=== PATIENT | male | born 1950 | race Caucasian/White ===

== ENCOUNTER 2016-12-30 12:40 | Outpatient (CLI) | payer MEDICARE, MEDICAID ==
[~2016-12-30] VITALS: Ht 182.9 cm; Wt 99.8 kg
[~2016-12-30 12:40] MED LIST: ACHD5005 PO; ASP81TEC PO; ATRV10T PO; CLOP75TA PO; CPR500T PO; LISI1TAB10 PO; LISI1TAB6 PO; METO50TA7 PO; OMEP20CA12 PO; OMG1KC PO; PHEN200T27 PO; TMSL.4C PO
--- OUTSIDE RECORDS SUMMARY | 2016-12-30 12:44 | XMS REPORT | Continuity of Care Document ---
Author Author Formerly [facility] Address Unknown Phone Unavailable Allergies Active Description Code Type Severity Reaction Onset Reported/Identified Relationship to Patient Clinical Status Yes No Known Drug Allergies [id number] Drug Allergy Unknown N/ A 12/06/2012 Medications Problems Date Dx Coded Attending Type Code Diagnosis Diagnosed By 12/23/2011 401.1 HYPERTENSION, BENIGN ESSENTIAL 12/23/2011 461.9 Sinusitis Acute 12/23/2011 466.0 Bronchitis, Acute 12/23/2011 401.1 HYPERTENSION, BENIGN ESSENTIAL 12/23/2011 461.9 Sinusitis Acute 12/23/2011 466.0 Bronchitis, Acute 12/23/2011 401.1 HYPERTENSION, BENIGN ESSENTIAL 12/23/2011 461.9 Sinusitis Acute 12/23/2011 466.0 Bronchitis, Acute 12/23/2011 FREDERICK DO, HAKAN K 401.1 HYPERTENSION, BENIGN ESSENTIAL 12/23/2011 FREDERICK DO, HAKAN K 461.9 Sinusitis Acute 12/23/2011 FREDERICK DO, HAKAN K 466.0 Bronchitis, Acute 12/23/2011 FREDERICK DO, HAKAN K 401.1 HYPERTENSION, BENIGN ESSENTIAL 12/23/2011 FREDERICK DO, HAKAN K 461.9 Sinusitis Acute 12/23/2011 FREDERICK DO, HAKAN K 466.0 Bronchitis, Acute 12/23/2011 FREDERICK DO, HAKAN K 401.1 HYPERTENSION, BENIGN ESSENTIAL 12/23/2011 FREDERICK DO, HAKAN K 461.9 Sinusitis Acute 12/23/2011 FREDERICK DO, HAKAN K 466.0 Bronchitis, Acute 12/23/2011 FREDERICK DO, HAKAN K 401.1 HYPERTENSION, BENIGN ESSENTIAL 12/23/2011 FREDERICK DO, HAKAN K 461.9 Sinusitis Acute 12/23/2011 FREDERICK DO, HAKAN K 466.0 Bronchitis, Acute 01/14/2012 702.19 OTHER SEBORRHEIC KERATOSIS 01/14/2012 709.9 UNSPECIFIED DISORDER OF SKIN AND SUBCUTANEOUS TISSUE 01/14/2012 702.19 OTHER SEBORRHEIC KERATOSIS 01/14/2012 709.9 UNSPECIFIED DISORDER OF SKIN AND SUBCUTANEOUS TISSUE 01/14/2012 702.19 OTHER SEBORRHEIC KERATOSIS 01/14/2012 709.9 UNSPECIFIED DISORDER OF SKIN AND SUBCUTANEOUS TISSUE 01/14/2012 HAKAN FREDERICK DO K 702.19 OTHER SEBORRHEIC KERATOSIS 01/14/2012 HAKAN FREDERICK DO K 709.9 UNSPECIFIED DISORDER OF SKIN AND SUBCUTANEOUS TISSUE 01/14/2012 DAVID FREDERICK DOA K 702.19 OTHER SEBORRHEIC KERATOSIS 01/14/2012 DAVID FREDERICK DOA K 709.9 UNSPECIFIED DISORDER OF SKIN AND SUBCUTANEOUS TISSUE 01/14/2012 DAVID FREDERICK DOA K 702.19 OTHER SEBORRHEIC KERATOSIS 01/14/2012 HAKAN FREDERICK DO K 709.9 UNSPECIFIED DISORDER OF SKIN AND SUBCUTANEOUS TISSUE 01/14/2012 HAKAN FREDERICK DO K 702.19 OTHER SEBORRHEIC KERATOSIS 01/14/2012 HAKAN FREDERICK DO 709.9 UNSPECIFIED DISORDER OF SKIN AND SUBCUTANEOUS TISSUE 01/28/2012 302.72 MALE ERECTILE DISORDER 01/28/2012 302.72 MALE ERECTILE DISORDER 01/28/2012 302.72 MALE ERECTILE DISORDER 01/28/2012 HAKAN FREDERICK DO K 302.72 MALE ERECTILE DISORDER 01/28/2012 HAKAN FREDERICK DO 302.72 MALE ERECTILE DISORDER 01/28/2012 HAKAN FREDERICK DO K 302.72 MALE ERECTILE DISORDER 01/28/2012 HAKAN FREDERICK DO K 302.72 MALE ERECTILE DISORDER 07/13/2012 276.51 DEHYDRATION 07/13/2012 724.2 LUMBAGO 07/13/2012 729.2 NEURALGIA NEURITIS AND RADICULITIS UNSPECIFIED 07/13/2012 276.51 DEHYDRATION 07/13/2012 724.2 LUMBAGO 07/13/2012 729.2 NEURALGIA NEURITIS AND RADICULITIS UNSPECIFIED 07/13/2012 276.51 DEHYDRATION 07/13/2012 724.2 LUMBAGO 07/13/2012 729.2 NEURALGIA NEURITIS AND RADICULITIS UNSPECIFIED 07/13/2012 HAKAN FREDERICK DO K 276.51 DEHYDRATION 07/13/2012 HAKAN FREDERICK DO K 724.2 LUMBAGO 07/13/2012 FREDERICK DO, HAKAN K 729.2 NEURALGIA NEURITIS AND RADICULITIS UNSPECIFIED 07/13/2012 FREDERICK DO, HAKAN K 276.51 DEHYDRATION 07/13/2012 FREDERICK DO, HAKAN K 724.2 LUMBAGO 07/13/2012 FREDERICK DO, HAKAN K 729.2 NEURALGIA NEURITIS AND RADICULITIS UNSPECIFIED 07/13/2012 FREDERICK DO, HAKAN K 276.51 DEHYDRATION 07/13/2012 FREDERICK DO, HAKAN K 724.2 LUMBAGO 07/13/2012 FREDERICK DO, HAKAN K 729.2 NEURALGIA NEURITIS AND RADICULITIS UNSPECIFIED 07/13/2012 FREDERICK DO, HAKAN K 276.51 DEHYDRATION 07/13/2012 FREDERICK DO, HAKAN K 724.2 LUMBAGO 07/13/2012 FREDERICK DO, HAKAN K 729.2 NEURALGIA NEURITIS AND RADICULITIS UNSPECIFIED 03/31/2013 786.05 SHORTNESS OF BREATH 03/31/2013 786.50 CHEST PAIN 03/31/2013 786.05 SHORTNESS OF BREATH 03/31/2013 786.50 CHEST PAIN 03/31/2013 FREDERICK DO, HAKAN K 786.05 SHORTNESS OF BREATH 03/31/2013 FREDERICK DO, HAKAN K 786.50 CHEST PAIN 03/31/2013 FREDERICK DO, HAKAN K 786.05 SHORTNESS OF BREATH 03/31/2013 FREDERICK DO, HAKAN K 786.50 CHEST PAIN 03/31/2013 FREDERICK DO, HAKAN K 786.05 SHORTNESS OF BREATH 03/31/2013 FREDERICK DO, HAKAN K 786.50 CHEST PAIN 03/31/2013 FREDERICK DO, HAKAN K 786.05 SHORTNESS OF BREATH 03/31/2013 FREDERICK DO, HAKAN K 786.50 CHEST PAIN 04/02/2013 790.95 ELEVATED C-REACTIVE PROTEIN (CRP) 04/02/2013 FREDERICK DO, HAKAN K 790.95 ELEVATED C-REACTIVE PROTEIN (CRP) 04/02/2013 FREDERICK DO, HAKAN K 790.95 ELEVATED C-REACTIVE PROTEIN (CRP) 04/02/2013 FREDERICK DO, HAKAN K 790.95 ELEVATED C-REACTIVE PROTEIN (CRP) 04/02/2013 FREDERICK DO, HAKAN K 790.95 ELEVATED C-REACTIVE PROTEIN (CRP) 04/09/2013 LILLIAN CLEMONS, MARLIN J Ot 401.9 HYPERTENSION NOS 04/09/2013 MARLIN MONTOYA MD Ot 413.9 ANGINA PECTORIS NEC/NOS 04/09/2013 MARLIN MONTOYA MD Ot 414.01 CORONARY ATHEROSCLEROSIS OF [place] CORON 04/09/2013 MARLIN MONTOYA MD Ot 426.50 BUNDLE BRANCH BLOCK NOS 04/09/2013 MARLIN MONTOYA MD Ot 530.81 ESOPHAGEAL REFLUX 04/09/2013 MARLIN MONTOYA MD Ot 786.09 RESPIRATORY ABNORM NEC 04/09/2013 MARLIN MONTOYA MD Ot V15.82 HISTORY OF TOBACCO USE 04/09/2013 MARLIN MONTOYA MD Ot V17.49 FAMILY HISTORY OF OTHER CARDIOVASCULAR D 04/09/2013 MARLIN MONTOYA MD Ot V58.69 OT MED,LT,CURRENT USE 09/15/2013 HAKAN FREDERICK DO K 433.10 CAROTID 09/15/2013 HAKAN FREDERICK DO K 433.10 CAROTID 09/15/2013 HAKAN FREDERICK DO K 433.10 CAROTID 09/15/2013 HAKAN FREDERICK DO K 433.10 CAROTID 01/09/2014 ELIZABETH CARLIN MD Ot 568.81 HEMOPERITONEUM 01/09/2014 ELIZABETH CARLIN MD Ot 789.09 ABDOMINAL PAIN, OTHER SPECIFIED SITE 02/28/2015 Ot 721.3 02/28/2015 Ot 599.70 02/28/2015 Ot 600.01 02/28/2015 MARLIN MONTOYA MD Ot 272.4 02/28/2015 MARLIN MONTOYA MD Ot 401.9 02/28/2015 MARLIN MONTOYA MD Ot 414.01 02/28/2015 KENYATTA BANERJEE Ot 724.2 02/28/2015 IBIS ROONEY Ot 272.4 02/28/2015 IBIS ROONEY Ot 414.00 02/28/2015 MARLIN MONTOYA MD Ot 272.4 02/28/2015 MARLIN MONTOYA MD Ot 308.1 02/28/2015 MARLIN MONTOYA MD Ot 414.00 02/28/2015 MARLIN MONTOYA MD Ot 426.4 02/28/2015 MARLIN MONTOYA MD Ot 786.50 03/24/2015 LILLIAN MD, BASHAR J Ot 272.4 03/24/2015 LILLIAN CLEMONS, BASHAR J Ot 401.9 03/24/2015 LILLIAN CLEMONS, BASHAR J Ot 414.9 03/24/2015 LILLIAN CLEMONS, BASHAR J Ot 786.09 03/24/2015 LILLIAN CLEMONS, BASHAR J Ot 272.4 03/24/2015 LILLIAN CLEMONS, BASHAR J Ot 401.9 03/24/2015 LILLIAN CLEMONS, BENJAMINHAR J Ot 414.9 03/24/2015 LILLIAN CLEMONS, BASHAR J Ot 786.09 03/24/2015 LILLIAN CLEMONS, BASHAR J Ot 272.4 03/24/2015 LILLIAN CLEMONS, BASHAR J Ot 401.9 03/24/2015 ILLLIAN CLEMONS, MARLIN J Ot 414.00 03/24/2015 LILLIAN CLEMONS, MARLIN J Ot 786.09 04/07/2015 LILLIAN CLEMONS, BENJAMINHAR J Ot 272.4 04/07/2015 LILLIAN CLEMONS, BENJAMINHAR J Ot 401.9 04/07/2015 LILLIAN CLEMONS, MARLIN J Ot 414.9 04/07/2015 LILLIAN CLEMONS, MARLIN J Ot 786.09 04/07/2015 LILLIAN CLEMONS, MARLIN J Ot 272.4 04/07/2015 LILLIAN CLEMONS, BENJAMINHAR J Ot 401.9 04/07/2015 LILLIAN CLEMONS, MARLIN J Ot 414.00 04/07/2015 LILLIAN CLEMONS, MARLIN J Ot 786.09 06/23/2015 Ot 721.3 06/23/2015 Ot 599.70 06/23/2015 Ot 600.01 06/23/2015 LILLIAN CLEMONS, MARLIN J Ot 272.4 06/23/2015 LILLIAN CLEMONS, BENJAMINHAR J Ot 401.9 06/23/2015 LILLIAN CLEMONS, BENJAMINHAR J Ot 414.01 06/23/2015 KENYATTA BANERJEE Ot 724.2 06/23/2015 IBIS ROONEY Ot 272.4 06/23/2015 IBIS ROONEY Ot 414.00 06/23/2015 LILLIAN CLEMONS, MARLIN J Ot 272.4 06/23/2015 LILLIAN CLEMONS, MARLIN J Ot 308.1 06/23/2015 LILLIAN CLEMONS, MARLIN J Ot 414.00 06/23/2015 LILLIAN CLEMONS, BASHAR J Ot 426.4 06/23/2015 LILLIAN CLEMONS, MARLIN Lee Ot 786.50 06/23/2015 LILLIAN CLEMONS, MARLIN Lee Ot 272.4 06/23/2015 LILLIAN CLEMONS, MARLIN J Ot 401.9 06/23/2015 LILLIAN CLEMONS, MARLIN J Ot 414.9 06/23/2015 LILLIAN CLEMONS, MARLIN Lee Ot 786.09 06/23/2015 LILLIAN CLEMONS, MARLIN Lee Ot 272.4 06/23/2015 LILLIAN CLEMONS, MARLIN Lee Ot 401.9 06/23/2015 LILLIAN CLEMONS, MARLIN Lee Ot 414.9 06/23/2015 LILLIAN CLEMONS, MARLIN Lee Ot 786.09 06/23/2015 LILLIAN CLEMONS, MARLIN Lee Ot 272.4 06/23/2015 LILLIAN CLEMONS, MARLIN Lee Ot 401.9 06/23/2015 LILLIAN CLEMONS, MARLIN Lee Ot 414.00 06/23/2015 LILLIAN CLEMONS, MARLIN Lee Ot 786.09 09/01/2015 SAMANTHA PERALTA MD Ot M51.36 OTHER INTERVERTEBRAL DISC DEGENERATION, 09/01/2015 SAMANTHA PERALTA MD Ot 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 10/24/2015 Ot 721.3 10/24/2015 Ot 599.70 10/24/2015 Ot 600.01 10/24/2015 LILLIAN CLEMONS, MARLIN Lee Ot 272.4 10/24/2015 LILLIAN CLEMONS, MARLIN Lee Ot 401.9 10/24/2015 LILLIAN CLEMONS, MARLIN Lee Ot 414.01 10/24/2015 KENYATTA BANERJEE Ot 724.2 10/24/2015 IBIS ROONEY Ot 272.4 10/24/2015 IBIS ROONEY Ot 414.00 10/24/2015 LILLIAN CLEMONS, MARLIN Lee Ot 272.4 10/24/2015 LILLIAN CLEMONS, MARLIN Lee Ot 308.1 10/24/2015 LILLIAN CLEMONS, MARLIN Lee Ot 414.00 10/24/2015 LILLIAN CLEMONS, MARLIN Lee Ot 426.4 10/24/2015 LILLIAN CLEMONS, MARLIN Lee Ot 786.50 10/24/2015 LILLIAN CLEMONS, MARLIN Lee Ot 272.4 10/24/2015 LILLIAN CLEMONS, MARLIN Lee Ot 401.9 10/24/2015 MARLIN MONTOYA MD Ot 414.9 10/24/2015 MARLIN MONTOYA MD Ot 786.09 10/24/2015 MARLIN MONTOYA MD Ot 272.4 10/24/2015 MARLIN MONTOYA MD Ot 401.9 10/24/2015 MARLIN MONTOYA MD Ot 414.9 10/24/2015 MARLIN MONTOYA MD Ot 786.09 10/24/2015 MARLIN MONTOYA MD Ot 272.4 10/24/2015 MARLIN MONTOYA MD Ot 401.9 10/24/2015 MARLIN MONTOYA MD Ot 414.00 10/24/2015 MARLIN MONTOYA MD Ot 786.09 10/24/2015 SAUNDRA JONES APRN Ot 724.2 11/16/2015 MARLIN MONTOYA MD Ot I25.10 11/16/2015 MARLIN MONTOYA MD Ot I73.9 11/16/2015 MARLIN MONTOYA MD Ot R25.2 11/16/2015 MARLIN MONTOYA MD Ot I25.10 11/16/2015 MARLIN MONTOYA MD Ot I73.9 11/16/2015 MARLIN MONTOYA MD Ot R25.2 01/05/2016 SAMANTHA PERALTA MD Ot M51.16 INTERVERTEBRAL DISC DISORDERS W RADICULO 01/05/2016 SAMANTHA PERALTA MD Ot M53.3 SACROCOCCYGEAL DISORDERS, NOT ELSEWHERE 01/05/2016 SAMANTHA PERALTA MD Ot Z79.899 OTHER HALF-WAY (CURRENT) DRUG THERAPY 03/04/2016 MARLIN MONTOYA MD Ot E78.2 MIXED HYPERLIPIDEMIA 03/04/2016 MARLIN MONTOYA MD Ot I10 ESSENTIAL (PRIMARY) HYPERTENSION 03/04/2016 MARLIN MONTOYA MD Ot I25.10 ATHSCL HEART DISEASE OF [place] CORONARY 03/04/2016 MARLIN MONTOYA MD Ot R07.89 OTHER CHEST PAIN 03/21/2016 MARLIN MONTOYA MD Ot E78.2 MIXED HYPERLIPIDEMIA 03/21/2016 MARLIN MONTOYA MD Ot I10 ESSENTIAL (PRIMARY) HYPERTENSION 03/21/2016 MARLIN MONTOAY MD Ot I25.10 ATHSCL HEART DISEASE OF [place] CORONARY 03/21/2016 MARLIN MONTOYA MD Ot R07.89 OTHER CHEST PAIN 05/24/2016 SAMANTHA PERALTA MD Ot M51.16 INTERVERTEBRAL DISC DISORDERS W RADICULO 05/24/2016 SAMANTHA PERALTA MD Ot M53.3 SACROCOCCYGEAL DISORDERS, NOT ELSEWHERE 06/19/2016 SAMANTHA PERALTA MD Ot M51.16 INTERVERTEBRAL DISC DISORDERS W RADICULO 06/19/2016 SAMANTHA PERALTA MD Ot M53.3 SACROCOCCYGEAL DISORDERS, NOT ELSEWHERE 09/02/2016 Ot 599.70 HEMATURIA, UNSPECIFIED 09/02/2016 Ot 600.01 HYPERTROPHY (BENIGN) OF PROSTATE W URINA 09/02/2016 MARLIN MONTOYA MD Ot 272.4 HYPERLIPIDEMIA NEC/NOS 09/02/2016 MARLIN MONTOYA MD Ot 401.9 HYPERTENSION NOS 09/02/2016 MARLIN MONTOYA MD Ot 414.01 CORONARY ATHEROSCLEROSIS OF [place] CORON 09/02/2016 KENYATTA BANERJEE Ot 724.2 LUMBAGO 09/02/2016 IBIS ROONEY Ot 272.4 HYPERLIPIDEMIA NEC/NOS 09/02/2016 IBIS ROONEY Ot 414.00 CORON ATHEROSCLER NOS TYPE VESSEL, NATIV 09/02/2016 MARLIN MONTOYA MD Ot 272.4 HYPERLIPIDEMIA NEC/NOS 09/02/2016 MARLIN MONTOYA MD Ot 308.1 STRESS REACTION, FUGUE 09/02/2016 MARLIN MONTOYA MD Ot 414.00 CORON ATHEROSCLER NOS TYPE VESSEL, NATIV 09/02/2016 MARLIN MONTOYA MD Ot 426.4 RT BUNDLE BRANCH BLOCK 09/02/2016 MARLIN MONTOYA MD Ot 786.50 CHEST PAIN NOS 09/02/2016 MARLIN MONTOYA MD Ot 272.4 HYPERLIPIDEMIA NEC/NOS 09/02/2016 MARLIN MONTOYA MD Ot 401.9 HYPERTENSION NOS 09/02/2016 MARLIN MONTOYA MD Ot 414.9 CHR ISCHEMIC HRT DIS NOS 09/02/2016 MARLIN MONTOYA MD Ot 786.09 RESPIRATORY ABNORM NEC 09/02/2016 MARLIN MONTOYA MD Ot 272.4 HYPERLIPIDEMIA NEC/NOS 09/02/2016 MARLIN MONTOYA MD Ot 401.9 HYPERTENSION NOS 09/02/2016 MARLIN MONTOYA MD Ot 414.9 CHR ISCHEMIC HRT DIS NOS 09/02/2016 MARLIN MONTOYA MD Ot 786.09 RESPIRATORY ABNORM NEC 09/02/2016 MARLIN MONTOYA MD Ot 272.4 HYPERLIPIDEMIA NEC/NOS 09/02/2016 MARLIN MONTOYA MD Ot 401.9 HYPERTENSION NOS 09/02/2016 MARLIN MONTOYA MD Ot 414.00 CORON ATHEROSCLER NOS TYPE VESSEL, NATIV 09/02/2016 MARLIN MONTOYA MD Ot 786.09 RESPIRATORY ABNORM NEC 09/02/2016 ROBERT SAUNDRA A GROUP DYNAMICS INSTRUCTOR Ot 724.2 LUMBAGO 09/02/2016 MARLIN MONTOYA MD Ot I25.10 ATHSCL HEART DISEASE OF [place] CORONARY 09/02/2016 MARLIN MONTOYA MD Ot I73.9 PERIPHERAL VASCULAR DISEASE, UNSPECIFIED 09/02/2016 MARLIN MONTOYA MD Ot R25.2 CRAMP AND SPASM 09/02/2016 MARLIN MONTOYA MD Ot E78.2 MIXED HYPERLIPIDEMIA 09/02/2016 MARLIN MONTOYA MD Ot I10 ESSENTIAL (PRIMARY) HYPERTENSION 09/02/2016 MARLIN MONTOYA MD Ot I25.10 ATHSCL HEART DISEASE OF [place] CORONARY 09/02/2016 MARLIN MONTOYA MD Ot R07.89 OTHER CHEST PAIN 09/02/2016 SAMANTHA PERALTA MD Ot M51.16 INTERVERTEBRAL DISC DISORDERS W RADICULO 09/02/2016 SAMANTHA PERALTA MD Ot M53.3 SACROCOCCYGEAL DISORDERS, NOT ELSEWHERE 09/02/2016 SAMANTHA PERALTA MD Ot Z79.899 OTHER HALF-WAY (CURRENT) DRUG THERAPY 10/08/2016 MARLIN MONTOYA MD Ot Z48.812 ENCNTR FOR SURGICAL AFTCR FOLLOWING SURG 10/08/2016 MARLIN MONTOYA MD Ot Z95.5 PRESENCE OF CORONARY ANGIOPLASTY IMPLANT 11/14/2016 MARLIN MONTOYA MD Ot Z48.812 ENCNTR FOR SURGICAL AFTCR FOLLOWING SURG 11/14/2016 MARLIN MONTOYA MD Ot Z95.5 PRESENCE OF CORONARY ANGIOPLASTY IMPLANT 11/20/2016 MARLIN MONTOYA MD Ot Z48.812 ENCNTR FOR SURGICAL AFTCR FOLLOWING SURG 11/20/2016 MARLIN MONTOYA MD Ot Z95.5 PRESENCE OF CORONARY ANGIOPLASTY IMPLANT 11/20/2016 MARLIN MONTOYA MD Ot Z48.812 ENCNTR FOR SURGICAL AFTCR FOLLOWING SURG 11/20/2016 MARLIN MONTOYA MD Ot Z95.5 PRESENCE OF CORONARY ANGIOPLASTY IMPLANT 11/23/2016 MARLIN MONTOYA MD Ot Z48.812 ENCNTR FOR SURGICAL AFTCR FOLLOWING SURG 11/23/2016 MARLIN MONTOYA MD Ot Z95.5 PRESENCE OF CORONARY ANGIOPLASTY IMPLANT 11/28/2016 MARLIN MONTOYA MD Ot Z48.812 ENCNTR FOR SURGICAL AFTCR FOLLOWING SURG 11/28/2016 MARLIN MONTOYA MD Ot Z95.5 PRESENCE OF CORONARY ANGIOPLASTY IMPLANT 11/28/2016 MARLIN MONTOYA MD Ot Z48.812 ENCNTR FOR SURGICAL AFTCR FOLLOWING SURG 11/28/2016 MARLIN MONTOYA MD Ot Z95.5 PRESENCE OF CORONARY ANGIOPLASTY IMPLANT Procedures Code Description [place] [address] ROUTINE VENIPUNCTURE 04/01/2013 63015 CMP 04/01/2013 1919404 GFR CALC (RESULT ONLY) 04/01/2013 09964 CPK 04/01/2013 37929 BNP 04/01/2013 03472 CRP HS (CARDIO) 04/01/2013 09845 CARDIOVASCULAR STRESS TEST 04/02/2013 Cardiolog Marlin Montoya 09/15/2013 78626 ROUTINE VENIPUNCTURE 11/04/2013 63230 MRI SPINE (LUMBAR) W/O CONTRAST 11/04/2013 24434 CMP 11/04/2013 OPHTHALMOLIVIA RASHEED 07/19/2014 Results Encounters ACCT No. Visit Date/Time Discharge Status Pt. Type Provider Facility Loc./Unit Complaint [id number] 07/21/2014 00:00:00 07/21/2014 23: 59:59 CLS Outpatient HAKAN FREDERICK DO [id number] 07/19/2014 09:28:00 07/19/2014 23: 59:59 CLS Outpatient HAKAN FREDERICK DO [id number] 11/04/2013 10:27:00 11/04/2013 23: 59:59 CLS Outpatient HAKAN FREDERICK DO [id number] 09/01/2013 10:51:00 09/01/2013 23: 59:59 CLS Outpatient HAKAN FREDERICK DO [id number] 04/01/2013 08:04:00 Document Registration [id number] 03/31/2013 09:23:00 Document Registration [id number] 09/14/2012 11:56:00 Document Registration
[2016-12-30] MEDS ORDERED: BUPIVACAINE 0.25% 30 ML (SENSORCAINE) VIAL ONE (12:48)
[2016-12-30] MEDS ORDERED: LIDOCAINE 1% INJ 20 ML (XYLOCAINE) VIAL ONE (12:48)
[2016-12-30] MEDS ORDERED: TRIAMCINOLONE ACET (KENALOG-40) 40 MG/ML 1 ML VIAL ONE (12:48)
[2016-12-30 13:28] VITALS: BP 131/74
[2016-12-30 14:16] VITALS: BP 129/75
--- NOTE | 2016-12-30 14:53 | Pain Medicine-Procedure ---
Procedure Pre-Op/Post-Op Diagnosis Diagnosis: disc disorder with radiculopathy, lumbar Indications for Operation Low back and hip pain Attending Surgeon Guzman Procedure Date of Service: Dec 30, 2016 Procedure: Lumbar Epidural Steroid Injection at the L4-L5 Level under Fluoroscopic Guidance and bilateral sacroiliac joint injections Procedure: Patient was identified in the holding area. After risks, benefits, and alternatives were discussed with the patient, informed consent was obtained. Patient held his Plavix for 7 days prior to procedure. Patient was brought to the fluoroscopy suite and placed prone on the procedure room table. A time out was performed. Vital signs were monitored throughout the procedure. The patients low back was prepped and draped in the usual sterile fashion. The patients skin was anesthetized using 2% Lidocaine. A Tuohy needle was inserted and advanced to the L4-L5 epidural space under fluoroscopic guidance using the loss of resistance technique and intermittent projection of fluoroscopy. There was no paresthesia with needle placement. The needle position was confirmed in both the AP and lateral view. After negative aspiration 2ml of non-ionic contrast was injected under live fluoroscopy which showed good spread of the contrast in the epidural space at the appropriate level, there was no intravascular or subarachnoid spread. Again, after negative aspiration for heme or CSF, 2 ml of 0.25% Bupivicaine, 2ml of preservative free normal saline, and 80mg of Kenalog was injected. The needle was removed and a sterile bandage was placed. Attention was then directed to the right sacroiliac joint which was identified under fluoroscopic guidance. The skin overlying the posterior inferior one third of the sacroiliac joint was anesthetized with 1 percent lidocaine and a 22 -gauge 3-1/2 inch needle was inserted and advanced into the joint. Following negative aspiration a total of 20 mg of Kenalog and 2 mL of 0.25 percent bupivacaine was injected. Needle was flushed with lidocaine and removed. Attention was then directed to the left sacroiliac joint were the same procedure was performed and the same solution was injected. Sterile bandages were applied. Patient tolerated the procedures well with no apparent complications. Complications None SAMANTHA PERALTA MD Dec 30, 2016 2:53 pm
== END 2016-12-30 14:20 | disposition home or self-care (01) ==
LOC: CARD 12:40
PROVIDERS: ATTEND Pain Medicine Pain Medicine
DX: M53.3 Sacrococcygeal disorders, not elsewhere classified (principal); M51.16 Intervertebral disc disorders with radiculopathy, lumbar region; Z79.899 Other long term (current) drug therapy
CPT/HCPCS: 27096; 62323

== ENCOUNTER 2017-01-03 08:47 | Outpatient (RCR) | payer MEDICARE, MEDICAID | END 2017-01-05 | disposition home or self-care (01) | LOC: CR 08:47 | PROVIDERS: ATTEND Internal Medicine Cardiovascular Disease | DX: Z48.812 Encounter for surgical aftercare following surgery on the circulatory system (principal); Z95.5 Presence of coronary angioplasty implant and graft | CPT/HCPCS: 93798 ==

== ENCOUNTER 2017-03-24 12:58 | Outpatient (CLI) | payer MEDICARE, MEDICAID ==
[~2017-03-24] VITALS: Ht 182.9 cm; Wt 99.8 kg
[2017-03-24] MEDS ORDERED: TRIAMCINOLONE ACET (KENALOG-40) 40 MG/ML 1 ML VIAL ONE (13:04)
[2017-03-24] MEDS ORDERED: BUPIVACAINE 0.25% 30 ML (SENSORCAINE) VIAL ONE (13:04)
[2017-03-24 13:08] VITALS: BP 128/71
[2017-03-24 13:42] VITALS: BP 133/88
--- NOTE | 2017-03-24 14:29 | Pain Medicine-Procedure ---
Procedure Pre-Op/Post-Op Diagnosis Diagnosis: disc disorder with radiculopathy, lumbar Indications for Operation Low back and hip pain Attending Surgeon Guzman Procedure Date of Service: March 24, 2017 Procedure: Lumbar Epidural Steroid Injection at the L4-L5 Level under Fluoroscopic Guidance and bilateral sacroiliac joint injections Procedure: Patient was identified in the holding area. After risks, benefits, and alternatives were discussed with the patient, informed consent was obtained. Patient held his Plavix for 7 days prior to procedure and he was instructed to start his Plavix again 24 hours following procedure. Patient was brought to the fluoroscopy suite and placed prone on the procedure room table. A time out was performed. Vital signs were monitored throughout the procedure. The patients low back was prepped and draped in the usual sterile fashion. The patients skin was anesthetized using 2% Lidocaine. A Tuohy needle was inserted and advanced to the L4-L5 epidural space under fluoroscopic guidance using the loss of resistance technique and intermittent projection of fluoroscopy. There was no paresthesia with needle placement. The needle position was confirmed in both the AP and lateral view. After negative aspiration 2ml of non-ionic contrast was injected under live fluoroscopy which showed good spread of the contrast in the epidural space at the appropriate level, there was no intravascular or subarachnoid spread. Again, after negative aspiration for heme or CSF, 2 ml of 0.25% Bupivicaine, 2ml of preservative free normal saline, and 80mg of Kenalog was injected. The needle was removed and a sterile bandage was placed. Attention was then directed to the right sacroiliac joint which was identified under fluoroscopic guidance. The skin overlying the posterior inferior one third of the sacroiliac joint was anesthetized with 1 percent lidocaine and a 22 -gauge 3-1/2 inch needle was inserted and advanced into the joint. Following negative aspiration a total of 20 mg of Kenalog and 2 mL of 0.25 percent bupivacaine was injected. Needle was flushed with lidocaine and removed. Attention was then directed to the left sacroiliac joint were the same procedure was performed and the same solution was injected. Sterile bandages were applied. Patient tolerated the procedures well with no apparent complications. Complications None SAMANTHA PERALTA MD March 24, 2017 2:29 pm
== END 2017-03-24 13:43 | disposition home or self-care (01) ==
LOC: CARD 12:58
PROVIDERS: ATTEND Pain Medicine Pain Medicine
DX: M53.3 Sacrococcygeal disorders, not elsewhere classified (principal); M51.16 Intervertebral disc disorders with radiculopathy, lumbar region
CPT/HCPCS: 27096; 62323

== ENCOUNTER 2017-04-02 08:45 | Outpatient (RCR) | payer MEDICARE, MEDICAID ==
--- OUTSIDE RECORDS SUMMARY | 2017-01-06 09:57 | XMS REPORT | Continuity of Care Document ---
Author Author Formerly [facility] Address Unknown Phone Unavailable Allergies Active Description Code Type Severity Reaction Onset Reported/Identified Relationship to Patient Clinical Status Yes No Known Drug Allergies [id number] Drug Allergy Unknown N/ A 12/06/2012 Medications [...] MONTOYA MD Ot 414.01 CORONARY ATHEROSCLEROSIS OF [place] CORON 04/09/2013 MARLIN MONTOYA MD Ot 426.50 BUNDLE BRANCH BLOCK NOS 04/09/2013 MARLIN MONTOYA MD Ot 530.81 ESOPHAGEAL REFLUX 04/09/2013 MARLIN MONTOYA MD Ot 786.09 RESPIRATORY ABNORM NEC 04/09/2013 MARLIN MONTOYA MD Ot V15.82 HISTORY OF TOBACCO USE 04/09/2013 MARLIN MONTOYA MD Ot V17.49 FAMILY HISTORY OF OTHER CARDIOVASCULAR D 04/09/2013 MARLIN OMNTOYA MD Ot V58.69 OT MED,LT,CURRENT USE 09/15/2013 [...] BASHAR J Ot 401.9 03/24/2015 LILLIAN CLEMONS, MARLIN J Ot 414.00 03/24/2015 LILLIAN [...] LILLIAN CLEMONS, MARLIN Lee Ot 786.09 06/23/2015 LILILAN CLEMONS, MARLIN Lee Ot 272.4 06/23/2015 LILLIAN [...] 01/05/2016 SAMANTHA PERALTA MD Ot Z79.899 OTHER [place]DC (CURRENT) DRUG THERAPY 03/04/2016 MARLIN MONTOYA MD Ot E78.2 MIXED HYPERLIPIDEMIA 03/04/2016 MARLIN MONTOYA MD Ot I10 ESSENTIAL (PRIMARY) HYPERTENSION 03/04/2016 MARLIN MONTOYA MD Ot I25.10 ATHSCL HEART DISEASE OF [place] CORONARY 03/04/2016 MARLIN MONTOYA MD Ot R07.89 OTHER CHEST PAIN 03/21/2016 MARLIN MONTOYA MD Ot E78.2 MIXED HYPERLIPIDEMIA 03/21/2016 MARLIN MONTOYA MD Ot I10 ESSENTIAL (PRIMARY) HYPERTENSION 03/21/2016 MARLIN MONTOYA MD Ot I25.10 ATHSCL HEART DISEASE OF [place] CORONARY 03/21/2016 MARLIN MONTOYA MD Ot R07.89 OTHER CHEST PAIN 05/24/2016 SAMANTHA PERALTA MD Ot M51.16 INTERVERTEBRAL DISC DISORDERS W RADICULO 05/24/2016 SAMANTHA PERALTA MD Ot M53.3 SACROCOCCYGEAL DISORDERS, NOT ELSEWHERE 06/19/2016 SAMANTHA EPRALTA MD Ot M51.16 INTERVERTEBRAL DISC DISORDERS W RADICULO 06/19/2016 SAMANTHA PERALTA MD Ot M53.3 SACROCOCCYGEAL DISORDERS, NOT ELSEWHERE 09/02/2016 Ot 599.70 HEMATURIA, UNSPECIFIED 09/02/2016 Ot 600.01 HYPERTROPHY (BENIGN) OF PROSTATE W URINA 09/02/2016 MARLIN MONTOYA MD Ot 272.4 HYPERLIPIDEMIA NEC/NOS 09/02/2016 MARLIN MNOTOYA MD Ot 401.9 HYPERTENSION NOS 09/02/2016 MARLIN MONTOYA MD Ot 414.01 CORONARY ATHEROSCLEROSIS OF [place] CORON 09/02/2016 KENYATTA BANERJEE Ot 724.2 LUMBAGO [...] RESPIRATORY ABNORM NEC 09/02/2016 ROBERT SAUNDRA A HEAD TEACHER Ot 724.2 LUMBAGO 09/02/2016 MARLIN MONTOYA MD Ot I25.10 ATHSCL HEART DISEASE OF [place] CORONARY 09/02/2016 MARLIN MONTOYA MD Ot I73.9 PERIPHERAL VASCULAR DISEASE, UNSPECIFIED 09/02/2016 MARLIN MONTOYA MD Ot R25.2 CRAMP AND SPASM 09/02/2016 MARLIN MONTOYA MD Ot E78.2 MIXED HYPERLIPIDEMIA 09/02/2016 MARLIN MONTOYA MD Ot I10 ESSENTIAL (PRIMARY) HYPERTENSION 09/02/2016 MARLIN MONTOYA MD Ot I25.10 ATHSCL HEART DISEASE OF [place] CORONARY 09/02/2016 MARLIN MONTOYA MD Ot R07.89 OTHER CHEST PAIN 09/02/2016 SAMANTHA PERALTA MD Ot M51.16 INTERVERTEBRAL DISC DISORDERS W RADICULO 09/02/2016 SAMANTHA PERALTA MD Ot M53.3 SACROCOCCYGEAL DISORDERS, NOT ELSEWHERE 09/02/2016 SAMANTHA PERALTA MD Ot Z79.899 OTHER [place] (CURRENT) DRUG THERAPY 10/08/2016 MARLIN MONTOYA MD [...] Ot Z95.5 PRESENCE OF CORONARY ANGIOPLASTY IMPLANT 12/30/2016 SAMANTHA PERALTA MD Ot M51.16 INTERVERTEBRAL DISC DISORDERS W RADICULO 12/30/2016 SAMANTHA PERALTA MD Ot M53.3 SACROCOCCYGEAL DISORDERS, NOT ELSEWHERE Procedures Code [place] [address] ROUTINE VENIPUNCTURE 04/01/2013 28202 CMP 04/01/2013 1981760 GFR CALC (RESULT ONLY) 04/01/2013 65555 CPK 04/01/2013 50970 BNP 04/01/2013 22970 CRP HS (CARDIO) 04/01/2013 88652 CARDIOVASCULAR STRESS TEST 04/02/2013 Cardiolog Marlin Montoya 09/15/2013 19324 ROUTINE VENIPUNCTURE 11/04/2013 90422 MRI SPINE (LUMBAR) W/O CONTRAST 11/04/2013 69585 CMP 11/04/2013 OPHTHALMOLIVIA RASHEED 07/19/2014 Results Encounters ACCT No. Visit Date/Time Discharge Status Pt. Type Provider Facility Loc./Unit Complaint [id number] 07/21/2014 00:00:00 07/21/2014 23: 59:59 CLS Outpatient HAKAN FREDERICK DO [id number] 07/19/2014 09:28:00 07/19/2014 23: 59:59 CLS Outpatient HAKAN FREDERICK DO [id number] 11/04/2013 10:27:00 11/04/2013 23: 59:59 CLS Outpatient HAKAN FREDERICK DO [id number] 09/01/2013 10:51:00 09/01/2013 23: 59:59 CLS Outpatient HAKAN FREDERICK DO [id number] 04/01/2013 08:04:00 Document Registration [id number] 03/31/2013 09:23:00 Document Registration [id number] 09/14/2012 11:56:00 Document Registration
== END 2017-04-06 | disposition home or self-care (01) ==
LOC: CR 08:45
PROVIDERS: ATTEND Internal Medicine Cardiovascular Disease
DX: Z48.812 Encounter for surgical aftercare following surgery on the circulatory system (principal); Z95.5 Presence of coronary angioplasty implant and graft
CPT/HCPCS: 93798

== ENCOUNTER → 2017-04-03 | Outpatient (CLI) | payer MEDICARE, MEDICAID ==
[2017-04-03 08:04] LABS: ALANINE AMINOTRANSFERASE 29 U/L (0-55); ALBUMIN 3.8 G/DL (3.2-4.5); ANION GAP 7 MMOL/L (5-14); ASPARTATE AMINO TRANSFERASE 17 U/L (5-34); BILIRUBIN,TOTAL 1.6 MG/DL (0.1-1.0); BLOOD UREA NITROGEN 27 MG/DL (7-18); BUN/CREATININE RATIO 25; CALCIUM 9.3 MG/DL (8.5-10.1); CARBON DIOXIDE 24 MMOL/L (21-32); CHLORIDE 104 MMOL/L (98-107); CHOLESTEROL 94 MG/DL (< 200); CREATININE SERUM 1.07 MG/DL (0.60-1.30); DIRECT LDL 51 MG/DL (1-129); GFR ESTIMATED > 60; GLUCOSE 91 MG/DL (70-105); POTASSIUM 4.1 MMOL/L (3.6-5.0); SODIUM 135 MMOL/L (135-145); TRIGLYCERIDES 87 MG/DL (<150); VLDL CHOLESTEROL 17 MG/DL (5-40)
== END ==
LOC: LAB 07:29
PROVIDERS: ATTEND Physician Assistant
DX: I25.10 Atherosclerotic heart disease of native coronary artery without angina pectoris (principal); I10 Essential (primary) hypertension; E78.2 Mixed hyperlipidemia
CPT/HCPCS: 36415; 80053; 80061

== ENCOUNTER 2017-04-18 08:43 | Outpatient (RCR) | payer MEDICARE, MEDICAID | END 2017-04-21 06:59 | disposition home or self-care (01) | LOC: CR 08:43 | PROVIDERS: ATTEND Internal Medicine Cardiovascular Disease | DX: Z48.812 Encounter for surgical aftercare following surgery on the circulatory system (principal); Z95.5 Presence of coronary angioplasty implant and graft | CPT/HCPCS: 93798 ==

== ENCOUNTER → 2017-05-05 | Outpatient (CLI) | payer MEDICARE, MEDICAID | LOC: CARD 08:16 | PROVIDERS: ATTEND Physician Assistant | DX: I25.10 Atherosclerotic heart disease of native coronary artery without angina pectoris (principal); I10 Essential (primary) hypertension; E78.2 Mixed hyperlipidemia | CPT/HCPCS: 93306 ==

== ENCOUNTER → 2018-03-23 | Outpatient (CLI) | payer MEDICARE, MEDICAID ==
[2018-03-23 10:10] LABS: ALANINE AMINOTRANSFERASE 34 U/L (0-55); ALKALINE PHOSPHATASE 66 U/L (40-136); BILIRUBIN,TOTAL 1.2 MG/DL (0.1-1.0); BUN/CREATININE RATIO 13; CALCIUM 9.4 MG/DL (8.5-10.1); CARBON DIOXIDE 29 MMOL/L (21-32); CHLORIDE 105 MMOL/L (98-107); CHOLESTEROL 105 MG/DL (< 200); CREATININE SERUM 1.18 MG/DL (0.60-1.30); GFR ESTIMATED > 60; GLUCOSE 94 MG/DL (70-105); HDL CHOLESTEROL 24 MG/DL (40-60); POTASSIUM 3.9 MMOL/L (3.6-5.0); SODIUM 139 MMOL/L (135-145); TOTAL PROTEIN 6.6 GM/DL (6.4-8.2); TRIGLYCERIDES 177 MG/DL (<150); VLDL CHOLESTEROL 35 MG/DL (5-40)
== END ==
LOC: LAB 09:37
PROVIDERS: ATTEND Physician Assistant
DX: I25.10 Atherosclerotic heart disease of native coronary artery without angina pectoris (principal); I10 Essential (primary) hypertension; E78.5 Hyperlipidemia, unspecified
CPT/HCPCS: 36415; 80053; 80061

== ENCOUNTER 2018-07-29 06:45 | Day surgery (SDC) | payer MEDICARE, MEDICAID ==
[2018-07-29] VITALS (10 sets, daily range): BP systolic 113–148; BP diastolic 61–98
[~2018-07-29] VITALS: Ht 180.3 cm; Wt 98.4 kg
--- OUTSIDE RECORDS SUMMARY | 2018-07-29 06:49 | XMS REPORT ---
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 Name Role Phone RICHARD SANDOVAL Unavailable PROBLEMS Type Condition ICD9-CM Code PNA90-IX Code Onset Dates Condition Status SNOMED Code Problem Coronary atherosclerosis due to lipid rich plaque I25.83 Active 38506352 Problem Chronic fatigue R53.82 Active 45878312 Problem Essential hypertension I10 Active 66281904 Problem Bilateral carotid artery stenosis I65.23 Active 87957841 Problem Tinnitus, bilateral H93.13 Active 4348169525900 Problem Lumbago with sciatica, left side M54.42 Active 440236101 Problem Melanocytic nevus of neck D22.4 Active 268936276 Problem Coronary artery disease involving [place] heart, angina presence unspecified, unspecified vessel or lesion type I25.10 Active 36890790 Problem Lumbar radiculopathy, chronic M54.16 Active 677405635 Problem Gastroesophageal reflux disease without esophagitis K21.9 Active 266682343 ALLERGIES No Information ENCOUNTERS Encounter Location Date Diagnosis [place] [address] [address] Nov, Pain in thoracic spine M54.6 [place] [address] [place] [id number] [place] [address]- 6321 Nov, [place] [address] [place] [address] 94561- 9768 Nov, Pain in thoracic spine M54.6 [place] [id number] [place] [address] 11520- 6608 Nov, Seborrheic keratoses L82.1 [place] [address] [place] [address] 80927- 8162 Nov, Pain in thoracic spine M54.6 and Skin lesion L98.9 [place] [address] [place] [address] 11317- 4574 Oct, [place] [id number] [place] [address] 02468- 0654 Aug, Worried well Z71.1 [facility] [address] [place] [address] [id number] Jun, Dental examination Z01.20 [place] [id number] [place] [address] 77966- 1916 Jan, [place] [address] [address]- [address] Dec, Lumbar radiculopathy, chronic M54.16 [place] [id number] [place] [address] 88246- 1721 Dec, Lumbar radiculopathy, chronic M54.16 and Tinnitus, bilateral H93.13 [place] [id number] [place] [address] 25611- 4831 Oct, Essential hypertension I10 ; Coronary artery disease involving [place] heart, angina presence unspecified, unspecified vessel or lesion type I25.10 ; Gastroesophageal reflux disease without esophagitis K21.9 ; Lumbar radiculopathy, chronic M54.16 and Chronic fatigue R53.82 [place] [id number] [place] [address] 29825- 1364 Jun, Seborrheic keratoses L82.1 [place] [address] [place] [address] 22872- 2200 May, Chronic fatigue R53.82 ; Essential hypertension I10 ; Melanocytic nevus of neck D22.4 and Coronary artery disease involving [place] heart, angina presence unspecified, unspecified vessel or lesion type I25.10 [place] [id number] [place] [address] 09702- 0061 Apr, [place] [address], [place] [address] 6[address] March, [facility] [id number] [place] [address] 46145- 0143 March, Essential hypertension I10 ; Coronary artery disease involving iroquois heart, angina presence unspecified, unspecified vessel or lesion type I25.10 and Chronic fatigue R53.82 [facility] [address], [place] [address] 379[address] Sep, [facility] [address] [facility] [id number] [address] Jul, [facility] [id number] [place] [address] 19681- 0194 Jun, [facility] [id number] [place] [address] 58506- 9697 Jun, Lumbago 724.2 [facility] [address], [place] [address] 3466 Feb, [facility] [address], [place] [address]- 5284 Feb, [facility] [address], [place] [address]- 2483 Nov, [facility] [address], [place] [address]- 4531 Nov, [facility] [address], [place] [address] 0224 Jul, [facility] [address] [place] [id number] [address]- 7721 Jul, [facility] [address], [place] [address]- 8474 Jul, [facility] [address], [place] [address]- 2350 Jul, [facility] [address], [place] [address]- 8751 Jun, [facility] [address] [id number] [place] [address]- 7836 Jun, [facility] [place] [facility] [address] [id number] [place] [address]- 1486 Dec, [facility] [place] [facility] [address] [id number] [place] [address]- 9986 Dec, [facility] [place] [facility] [address] [id number] [place] [address]- 5486 Nov, [facility] [address] [id number] [place] [address]- 3242 Nov, [facility] [address] [id number] [place] [address]- 5186 Nov, [facility] [address] [id number] [place] [address]- 7688 Oct, [facility] [address] [id number] [place] [address]- 0479 Oct, [facility] [address] [id number] [place] [address] Oct, [facility] [address] [id number] [place] [address]- 9331 Oct, [facility] [place] [facility] [address] [id number] [place] [address]- 3992 Oct, [facility] [place] [facility] [address] [id number] [place] [address]- 5784 Oct, [facility] [place] [facility] [address] [id number] [place] [address]- 8127 Oct, [facility] [place] [facility] [address] [id number] [place] [address]- 5148 Oct, [facility] [place] [facility] [address] [id number] [place] [address]- 6124 Sep, [facility] [place] [facility] [address] [id number] [place] [address]- 2546 Sep, [facility] [place] [facility] [address] [id number] [place] [address]- 7766 Sep, [facility] [place] [facility] [address] [id number] [place] [address]- 2546 Sep, [facility] [place] [facility] [address] [id number] [place] [address]- 7773 Aug, [facility] [place] [facility] [address] [id number] [place] [address]- 4970 Aug, [facility] [place] [facility] [address] [id number] [place] [address]- 4756 Aug, [facility] [place] [facility] [address] [id number] [place] [address] 2545 Aug, [facility] [place] [facility] [address] [id number] [place] [address]- 9664 Jul, [facility] [place] [facility] [address] [id number] [place] [address]- 9460 Jun, [facility] [place] [facility] [address] [id number] [place] [address]- 7556 Jun, [facility] [place] [facility] [address] [id number] [place] [address]- 7035 May, [facility] [place] [facility] [address] [id number] [place] [address]- 2546 Apr, [facility] [place] [facility] [address] [id number] [place] [address]- 2546 March, [facility] [place] [facility] [address] [id number] [place] [address]- 2546 March, [facility] [place] [facility] [address] [id number] [place] [address]- 2546 March, [facility] [place] [facility] [address] [id number] [place] [address]- 2303 March, [facility] [address] [id number] [address]- 3096 Feb, [facility] [address] [place] [address] 48622- 9986 Aug, [facility] [address], [place] [address]- 5946 Jun, [facility] [id number] [place] [address] 07145- 6146 Jun, [facility] [address], [place] [address]- 1738 Jan, [facility] [id number] [place] [address] 74856- 1726 Jan, [facility] [id number] [place] [address] 88041- 4866 Dec, [facility] [id number] [place] [address] 59536- 7211 Dec, [facility] [address] [place] [address] 81147- 4966 Dec, [facility] [address], [place] [address]- 6286 Dec, [facility] [address], [place] [address]- 3726 Dec, IMMUNIZATIONS No Known Immunizations SOCIAL HISTORY Never Assessed REASON FOR VISIT Request lab order PLAN OF CARE VITAL SIGNS MEDICATIONS Unknown Medications RESULTS No Results PROCEDURES No Known procedures INSTRUCTIONS MEDICATIONS ADMINISTERED No Known Medications MEDICAL (GENERAL) HISTORY Type Description Date Medical History hypertension initially dx by [facility] BAUER then ref to Dr. Montoya Medical History Internal Carotid Artery Stenosis- checking every 6 months due to plaque Medical History Radiculopathy- Dr Hinds (spinal injections and has only rec'd 2 injections) Medical History neuropathy Medical History Multivessel Disease - Dr Montoya main Chief Pilot and has referred to Dr Padgett at [place] (co-manage disease) Medical History CAD Surgical History heart cath (2013- Heart Cath x3 at [facility]- w/ Stent Placement) 2014- Dr Boyceer at [place] 2012 & 2013 Surgical History cholecystectomy 2000 Surgical History Stent placed - Dr. Montoya 03/2013 Hospitalization History Coronary Angiography was performed after positive stress test. Severe multivessel disease including segment severe stenosis in mid LAD and obtuse marginal branch as well as subtotal occulsion in mid RCA. Normal EF. 03/2013 Hospitalization History Over night after Heart Cath, [facility]. 03/2014
--- OUTSIDE RECORDS SUMMARY | 2018-07-29 06:49 | XMS REPORT ---
Author Author RICHARD SANDOVAL [facility] Address [address] [place] [address] Care Team Providers Care Financial Wellness Coach Name Role Phone RICHARD SANDOVAL Unavailable PROBLEMS Type Condition ICD9-CM Code ZNZ60-DB Code Onset Dates Condition Status SNOMED Code Problem Coronary atherosclerosis due to lipid rich plaque I25.83 Active 30508414 Problem Chronic fatigue R53.82 Active 30911672 Problem Essential hypertension I10 Active 81629587 Problem Bilateral carotid artery stenosis I65.23 Active 22049403 Problem Tinnitus, bilateral H93.13 Active 3594964574587 Problem Lumbago with sciatica, left side M54.42 Active 342421475 Problem Melanocytic nevus of neck D22.4 Active 583189835 Problem Coronary artery disease involving [place] heart, angina presence unspecified, unspecified vessel or lesion type I25.10 Active 80043512 Problem Lumbar radiculopathy, chronic M54.16 Active 257662431 Problem Gastroesophageal reflux disease without esophagitis K21.9 Active 920915372 ALLERGIES No Information ENCOUNTERS Encounter Location Date Diagnosis [place] [address] [place] [address] 86031- 1327 Jun, Essential hypertension I10 ; Coronary artery disease involving [place] heart, angina presence unspecified, unspecified vessel or lesion type I25.10 ; Coronary atherosclerosis due to lipid rich plaque I25.83 ; Lumbago with sciatica, left side M54.42 ; Gastroesophageal reflux disease without esophagitis K21.9 and Subacromial impingement of right shoulder M75.41 [place] [address] [place] [address] 94566- 0564 March, [place] [address] [place] [id number] [place] [address] 84598- 2681 Nov, Pain in thoracic spine M54.6 [place] [address] [place] [id number] [place] [address] 62290- 1097 Nov, [place] [address] 6[address]45- 4678 Nov, Pain in thoracic spine M54.6 [place] [address] 46587- 2043 Nov, Seborrheic keratoses L82.1 [place] [address] [address]37- 6775 03 Nov, 2017 Pain in thoracic spine M54.6 and Skin lesion L98.9 [place] [address] 69758- 1444 Oct, [place] [address] 85781- 0310 13 Aug, 2017 Worried well Z71.1 [facility] [address] [id number] Jun, Dental examination Z01.20 [place] [address] [address]24- 3442 Jan, [place] [address] 88586- 1724 Dec, Lumbar radiculopathy, chronic M54.16 [place] [address] [address]54- 3318 Dec, Lumbar radiculopathy, chronic M54.16 and Tinnitus, bilateral H93.13 [place] [address] [place] [id number] [place] [address] 40431- 6692 Oct, Essential hypertension I10 ; Coronary artery disease involving [place] heart, angina presence unspecified, unspecified vessel or lesion type I25.10 ; Gastroesophageal reflux disease without esophagitis K21.9 ; Lumbar radiculopathy, chronic M54.16 and Chronic fatigue R53.82 [place] [address] 11569- 3747 Jun, Seborrheic keratoses L82.1 [facility] [address], [place] [address]- 3809 May, Chronic fatigue R53.82 ; Essential hypertension I10 ; Melanocytic nevus of neck D22.4 and Coronary artery disease involving [place] heart, angina presence unspecified, unspecified vessel or lesion type I25.10 [facility] [address] [address]- 5213 Apr, [facility] [address] [address] [address]- 9629 March, [facility] [address] [place] [address] [id number] [place] [address] 91813- 9357 March, Essential hypertension I10 ; Coronary artery disease involving [place] heart, angina presence unspecified, unspecified vessel or lesion type I25.10 and Chronic fatigue R53.82 [facility] [address], [place] [address]- 7209 Sep, [facility] [address], [place] [address]- 9315 Jul, [facility] [address] [id number] [address]- 2611 Jun, [facility] [address], [place] [address]- 2526 Jun, Lumbago 724.2 [facility] [address], [place] [address]- 1309 Feb, [facility] [address], [place] [address]- 5516 Feb, [facility] [address], [place] [address]- 4761 Nov, [facility] [address], [place] [address]- 0924 Nov, [facility] [place] [facility] [address] [id number] [place] [address]- 9856 04 Jul, 2014 [facility] [place] [facility] [address] [id number] [place] [address]- 6206 04 Jul, 2014 [facility] [place] [facility] [address] [id number] [place] [address]- 1332 02 Jul, 2014 [facility] [place] [facility] [address] [id number] [place] [address]- 6116 Jul, [facility] [place] [facility] [address] [id number] [place] [address]- 7611 Jun, [facility] [place] [facility] [address] [id number] [place] [address]- 6231 Jun, [facility] [place] [facility] [address] [id number] [place] [address]- 9325 Dec, [facility] [place] [facility] [address] [id number] [place] [address]- 1220 Dec, [facility] [place] [facility] [address] [id number] [place] [address]- 0250 Nov, [facility] [place] [facility] [address] [id number] [place] [address]- 8233 Nov, [facility] [place] [facility] [address] [id number] [place] [address]- 5447 Nov, [facility] [place] [facility] [address] [id number] [place] [address]- 8378 Oct, [facility] [place] [facility] [address] [id number] [place] 1242 Oct, [facility] [place] [facility] [address] [id number] [place] [address]- 6335 Oct, [facility] [place] [facility] [address] [id number] [place] [address]- 5257 Oct, [facility] [place] [facility] [address] [id number] [place] [address]- 7392 Oct, [facility] [place] [facility] [address] [id number] [place] [address]- 3945 Oct, [facility] [place] [facility] [address] [id number] [place] [address]- 1150 Oct, [facility] [place] [facility] [address] [id number] [place] [address]- 7166 Oct, [facility] [place] [facility] [address] [id number] [place] [address]- 4333 Sep, [facility] [place] [facility] [address] [id number] [place] [address]- 2977 Sep, [facility] [place] [facility] [address] [id number] [place] [address]- 8988 Sep, [facility] [place] [facility] [address] [id number] [place] [address]- 9702 Sep, [facility] [place] [facility] [address] [id number] [place] [address]- 2743 Aug, [facility] [place] [facility] [address] [id number] [place] [address]- 4235 Aug, [facility] [place] [facility] [address] [id number] [place] [address]- 5776 Aug, [facility] [place] [facility] [address] [id number], [place] [address]- 8843 Aug, [facility] [place] [facility] [address] [id number] [address] 2548 Jul, [facility] [place] [facility] [address] [id number] [place] [address] 2547 Jun, [facility] [place] [facility] [address] [id number] [place] [address]- 8266 Jun, [facility] [place] [facility] [address] [id number] [place] [address] 2548 May, [facility] [place] [facility] [address] [id number] [place] [address]- 9226 Apr, [facility] [address] [id number] [place] [address]- 9269 March, [facility] [address] [id number] [place] [address]- 8916 March, [facility] [address] [id number] [place] [address]- 0456 March, [facility] [address] [id number] [place] [address]- 4310 March, [facility] [address] [id number] [place] [address]- 6210 Feb, [facility] [address] [id number] [place] [address]- 8826 Aug, [facility] [address] [id number] [place] [address]- 1040 Jun, [facility] [address] [id number] [place] [address]- 1807 Jun, [facility] [address] [id number] [place] [address]- 3125 Jan, [facility] [address] [id number] [place] [address]- 7090 Jan, [facility] [address] [id number] [place] [address]- 9506 28 Dec, 2011 [facility] [address] [id number] [place] [address]- 6602 28 Dec, 2011 [facility] [place] [facility] [address] [id number] [place] [address]- 9926 13 Dec, 2011 [facility] [address] [id number] [place] [address]- 2546 07 Dec, 2011 [facility] [address] [id number] [place] [address]- 3546 Dec, IMMUNIZATIONS No Known Immunizations SOCIAL HISTORY Never Assessed REASON FOR VISIT Referral PLAN OF CARE VITAL SIGNS MEDICATIONS No Known Medications RESULTS No Results PROCEDURES No Known [...] History Multivessel Disease - 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 Montoya 03/2013 Hospitalization History Coronary Angiography was performed after positive stress test. Severe multivessel disease including segment severe stenosis in mid LAD and obtuse marginal branch as well as subtotal occulsion in mid RCA. Normal EF. 03/2013 Hospitalization History Over night after Heart Cath, [facility] 03/2014
--- OUTSIDE RECORDS SUMMARY | 2018-07-29 06:49 | XMS REPORT ---
Author Author RICHARD SANDOVAL Organization [facility] Address [address] [place] [address] Care Team Providers Care Corrugator Supervisor Name Role Phone RICHARD SANDOVAL Unavailable PROBLEMS Type Condition ICD9-CM Code HQP16-VD Code Onset Dates Condition Status SNOMED Code Problem Coronary atherosclerosis due to lipid rich plaque I25.83 Active 02213048 Problem Chronic fatigue R53.82 Active 10997532 Problem Essential hypertension I10 Active 85314493 Problem Bilateral carotid artery stenosis I65.23 Active 91600581 Problem Tinnitus, bilateral H93.13 Active 6183561516047 Problem Lumbago with sciatica, left side M54.42 Active 437716701 Problem Melanocytic nevus of neck D22.4 Active 013309585 Problem Coronary artery disease involving [place] heart, angina presence unspecified, unspecified vessel or lesion type I25.10 Active 93139912 Problem Lumbar radiculopathy, chronic M54.16 Active 515135518 Problem Gastroesophageal reflux disease without esophagitis K21.9 Active 354227699 ALLERGIES No Information ENCOUNTERS Encounter Location Date Diagnosis [place] [address], [place] [address] March, [place] [address] [place] [id number] [place] [address] 90443- 6801 Nov, Pain in thoracic spine M54.6 [facility] [id number] [place] [address] 65368- 5070 Nov, [place] [id number] [place] [address] 93102- 1659 Nov, Pain in thoracic spine M54.6 [place] [address] [place] [address] 27102- 7565 Nov, Seborrheic keratoses L82.1 [place] [address] [place] [address] 31956- 9497 Nov, Pain in thoracic spine M54.6 and Skin lesion L98.9 [place] [id number] [place] [address] 63512- 2990 Oct, [place] [id number] [place] [address] 79405- 6125 Aug, Worried well Z71.1 [facility] [id number] [place] [address] [id number] Jun, Dental examination Z01.20 [place] [address] [address]- [address] Jan, [place] [id number] [place] [address] 08665- 8521 Dec, Lumbar radiculopathy, chronic M54.16 [place] [id number] [place] [address] 50955- 6446 Dec, Lumbar radiculopathy, chronic M54.16 and Tinnitus, bilateral H93.13 [place] [id number] [place] [address] 42693- 0678 Oct, Essential hypertension I10 ; Coronary artery disease involving [place] heart, angina presence unspecified, unspecified vessel or lesion type I25.10 ; Gastroesophageal reflux disease without esophagitis K21.9 ; Lumbar radiculopathy, chronic M54.16 and Chronic fatigue R53.82 [place] [address] [place] [address] 31166- 8684 Jun, Seborrheic keratoses L82.1 [place] [id number] [place] [address] 64386- 0411 May, Chronic fatigue R53.82 ; Essential hypertension I10 ; Melanocytic nevus of neck D22.4 and Coronary artery disease involving [place] heart, angina presence unspecified, unspecified vessel or lesion type I25.10 [place] [address] [facility] [id number] [address] 138[address] Apr, [facility] [address], [place] [address] 2083 March, [facility] [address], [place] [address] 9359 March, Essential hypertension I10 ; Coronary artery disease involving [place] heart, angina presence unspecified, unspecified vessel or lesion type I25.10 and Chronic fatigue R53.82 [facility] [address] [facility] [id number], [place] [address] 2115 Sep, [facility] [address], [place] [address] 2340 Jul, [facility] [address], [place] [address]- 3712 Jun, [facility] [address], [place] [address]- 2919 Jun, Lumbago 724.2 [facility] [address], [place] [address]- 5943 Feb, [facility] [address], [place] [address]- 9679 Feb, [facility] [address], [place] [address]- 5568 Nov, [facility] [address], [place] [address]- 8602 Nov, [facility] [id number], [place] [address]- 9148 Jul, [facility] [id number], [place] [address]- 7646 Jul, [facility] [id number], [place] [address]- 0012 Jul, [facility] [address], [place] [address]- 6778 Jul, [facility] [address] [id number] [place] [address]- 8048 Jun, [facility] [address] [id number] [place] [address]- 7090 Jun, [facility] [address] [id number] [place] [address]- 6146 Dec, [facility] [place] [facility] [address] [id number] [place] [address]- 1481 Dec, [facility] [address] [id number] [place] [address]- 4510 Nov, [facility] [address] [id number] [place] [address]- 5582 Nov, [facility] [address] [id number] [place] [address]- 2727 Nov, [facility] [address] [id number] [place] [address]- 9192 Oct, [facility] [address] [id number] [place] [address]- 8660 Oct, [facility] [address] [id number] [place] [address]- 9219 Oct, [facility] [address] [id number] [place] [address]- 5121 Oct, [facility] [place] [facility] [address] [id number] [place] [address]- 9825 Oct, [facility] [place] [facility] [address] [id number] [place] [address]- 3560 Oct, [facility] [place] [facility] [address] [id number] [place] [address]- 1855 Oct, [facility] [place] [facility] [address] [id number] [place] [address]- 6033 Oct, [facility] [place] [facility] [address] [id number] [place] [address]- 6159 Sep, [facility] [place] [facility] [address] [id number] [place] [address]- 8837 Sep, [facility] [place] [facility] [address] [id number] [place] [address] 2546 Sep, [facility] [place] [facility] [address] [id number] [place] [address]- 3258 Sep, [facility] [place] [facility] [address] [id number] [place] [address]- 9971 Aug, [facility] [place] [facility] [address] [id number] [place] [address]- 8539 Aug, [facility] [place] [facility] [address] [id number] [place] [address]- 2817 Aug, [facility] [place] [facility] [address] [id number] [place] [address]- 3322 Aug, [facility] [place] [facility] [address] [id number] [place] [address]- 2169 Jul, [facility] [place] [facility] [address] [id number] [place] [address]- 1217 Jun, [facility] [place] [facility] [address] [id number] [place] [address]- 5207 Jun, [facility] [place] [facility] [address] [id number] [place] [address] 2546 May, [facility] [place] [facility] [address] [id number] [place] [address]- 2540 Apr, [facility] [place] [facility] [address] [id number] [place] [address]- 2546 March, [facility] [place] [facility] [address] [id number] [place] [address]- 2546 March, [facility] [place] [facility] [address] [id number] [place] [address]- 2396 March, [facility] [id number], [place] [address]- 8526 March, [facility] [address], [place] [address]- 3246 Feb, [facility] [address], [place] [address]- 8436 Aug, [facility] [id number] [place] [address] 41487- 4086 Jun, [facility] [address], [place] [address]- 2076 Jun, [facility] [id number] [place] [address] 64405- 6146 Jan, [facility] [address], [place] [address]- 9476 Jan, [facility] [address], [place] [address]- 7366 Dec, [facility] [id number] [place] [address] 83297- 0086 Dec, [facility] [address], [place] [address]- 3026 Dec, [facility] [address], [place] [address]- 2056 Dec, [facility] [address], [place] [address]- 5386 Dec, IMMUNIZATIONS No Known Immunizations SOCIAL HISTORY Never Assessed REASON FOR VISIT Needs referral PLAN OF CARE VITAL SIGNS MEDICATIONS Unknown [...] History Multivessel Disease - Dr Montoya main Case Supervisor and has referred to Dr Padgett at [place] (co-manage disease) Medical History CAD Surgical History heart cath (2014- Heart Cath x3 at [facility] Montoya- w/ Stent Placement) 2014- Dr Ortiz at [place] 2012 & 2013 Surgical History cholecystectomy 2001 Surgical History Stent placed - Dr. Montoya 03/2013 Hospitalization History Coronary Angiography was performed after positive stress test. Severe multivessel disease including segment severe stenosis in mid LAD and obtuse marginal branch as well as subtotal occulsion in mid RCA. Normal EF. 03/2013 Hospitalization History Over night after Heart Cath, [facility] 03/2014
--- OUTSIDE RECORDS SUMMARY | 2018-07-29 06:50 | XMS REPORT ---
Author Author RICHARD SANDOVAL Organization [facility] Address [address] [place] [address] Care Team Providers Care Agriculture Specialist Name Role Phone RICHARD SANDOVAL Unavailable PROBLEMS Type Condition ICD9-CM Code PVU37-IG Code Onset Dates Condition Status SNOMED Code Problem Coronary atherosclerosis due to lipid rich plaque I25.83 Active 63628015 Problem Chronic fatigue R53.82 Active 57861217 Problem Essential hypertension I10 Active 75636091 Problem Bilateral carotid artery stenosis I65.23 Active 31775356 Problem Tinnitus, bilateral H93.13 Active 2880252932096 Problem Lumbago with sciatica, left side M54.42 Active 360265967 Problem Melanocytic nevus of neck D22.4 Active 549964038 Problem Coronary artery disease involving [place] heart, angina presence unspecified, unspecified vessel or lesion type I25.10 Active 60801320 Problem Lumbar radiculopathy, chronic M54.16 Active 230885978 Problem Gastroesophageal reflux disease without esophagitis K21.9 Active 009683554 ALLERGIES No Known Allergies ENCOUNTERS Encounter Location Date Diagnosis [place] [address] [address]- 6405 March, [place] [address] [place] [address] [id number] [place] [address] 12130- 4109 Nov, Pain in thoracic spine M54.6 [place] [address] [place] [address] 22931- 0839 Nov, [place] [address] [place] [id number] [place] [address] 97766- 1349 Nov, Pain in thoracic spine M54.6 [place] [address] [address]- 2670 Nov, Seborrheic keratoses L82.1 [place] [address] [place] [address] 49303- 4560 Nov, Pain in thoracic spine M54.6 and Skin lesion L98.9 [place] [id number] [place] [address] 47478- 9311 Oct, [place] [address] [id number] [place] [address] 81044- 8342 Aug, Worried well Z71.1 [facility] [id number] [place] [address] [id number] Jun, Dental examination Z01.20 [place] [address] 16485- 9146 Jan, [place] [address] [place] [id number] [place] [address] 74968- 9447 Dec, Lumbar radiculopathy, chronic M54.16 [place] [address] [place] [id number] [place] [address] 05209- 8494 Dec, Lumbar radiculopathy, chronic M54.16 and Tinnitus, bilateral H93.13 [place] [id number] [place] [address] 59016- 3308 Oct, Essential hypertension I10 ; Coronary artery disease involving [place] heart, angina presence unspecified, unspecified vessel or lesion type I25.10 ; Gastroesophageal reflux disease without esophagitis K21.9 ; Lumbar radiculopathy, chronic M54.16 and Chronic fatigue R53.82 [place] [address] [place] [address] 95838- 0495 Jun, Seborrheic keratoses L82.1 [place] [id number] [place] [address] 65948- 5964 May, Essential hypertension I10 ; Chronic fatigue R53.82 ; Coronary artery disease involving [place] heart, angina presence unspecified, unspecified vessel or lesion type I25.10 and Melanocytic nevus of neck D22.4 [place] [address] [address]- 5829 Apr, [facility] [address] [address]- 6019 March, [facility] [address] [address]- 5540 March, Essential hypertension I10 ; Coronary artery disease involving [place] heart, angina presence unspecified, unspecified vessel or lesion type I25.10 and Chronic fatigue R53.82 [facility] [address] [facility] [id number] [address]- 9710 Sep, [facility] [address] [address]- 0367 Jul, [facility] [address] [address]- 1828 Jun, [facility] [id number] [address]- 9997 Jun, Lumbago 724.2 [facility] [address] [address]- 7312 Feb, [facility] [address] [address]- 6367 Feb, [facility] [address] [address]- 9218 Nov, [facility] [address] [address]- 4184 Nov, [facility] [id number] [address]- 0781 Jul, [facility] [address] [address]- 3121 Jul, [facility] [id number] 6019 Jul, [facility] [address] [address]- 5725 Jul, [facility] [address] [id number] [place] [address]- 8128 Jun, [facility] [place] [facility] [address] [id number] [place] [address]- 9025 Jun, [facility] [address] [id number] [place] [address]- 6396 Dec, [facility] [place] [facility] [address] [id number] [place] [address]- 9210 Dec, [facility] [address] [id number] [place] [address]- 7864 Nov, [facility] [address] [id number] [place] [address]- 4824 Nov, [facility] [address] [id number] [place] [address]- 4802 Nov, [facility] [address] [id number] [place] [address]- 7515 Oct, [facility] [address] [id number] [place] [address]- 1589 Oct, [facility] [address] [facility] [id number] [place] [address]- 0248 Oct, [facility] [address] [id number] [place] 9[address] 31 Oct, 2013 [facility] [place] [facility] [address] [id number] [place] [address]- 3988 Oct, [facility] [place] [facility] [address] [id number] [place] [address]- 8882 Oct, [facility] [place] [facility] [address] [id number] [place] [address]- 3327 Oct, [facility] [place] [facility] [address] [id number] [place] [address]- 1583 Oct, [facility] [place] [facility] [address] [id number] [place] [address]- 3015 Sep, [facility] [place] [facility] [address] [id number] [place] [address]- 0289 Sep, [facility] [place] [facility] [address] [id number] [place] [address]- 1007 Sep, [facility] [place] [facility] [address] [id number] [place] [address]- 6850 Sep, [facility] [place] [facility] [address] [id number] [place] [address]- 1237 Aug, [facility] [place] [facility] [address] [id number] [place] [address]- 8514 Aug, [facility] [place] [facility] [address] [id number] [place] [address]- 8722 Aug, [facility] [place] [facility] [address] [id number] [place] [address]- 3185 Aug, [facility] [place] [facility] [address] [id number] [place] [address]- 4642 Jul, [facility] [place] [facility] [address] [id number] [place] [address]- 6175 Jun, [facility] [place] [facility] [address] [id number] [place] [address]- 6616 Jun, [facility] [place] [facility] [address] [id number] [place] [address]- 6347 May, [facility] [place] [facility] [address] [id number] [place] [address]- 1925 Apr, [facility] [place] [facility] [address] [id number] [place] [address]- 6184 March, [facility] [place] [facility] [address] [id number] [place] [address]- 4017 March, [facility] [place] [facility] [address] [id number] [place] [address]- 5079 March, [facility] [id number] [address]- 0506 March, [facility] [address] [address] 2546 Feb, [facility] [address] [address] 2546 Aug, [facility] [address] [address]- 2546 Jun, [facility] [address] [address] 2546 Jun, [facility] [address] [place] [address] 47449- 2476 Jan, [facility] [address] [address]- 9516 Jan, [facility] [address] [address]- 7286 Dec, [facility] [address] [address]- 8336 Dec, [facility] [address] [address]- 2616 Dec, [facility] [address] [address]- 0226 Dec, [facility] [id number] [address]- 2546 Dec, IMMUNIZATIONS No Known Immunizations SOCIAL HISTORY Never Assessed REASON FOR VISIT back- allasenCOLT, --baclofen doesnt seem to be helping, --has another spot to be looked at as others have previously been removed. PLAN OF CARE Activity Details Follow Up as needed 3 month for follow up Reason: VITAL SIGNS Height 72 in 2017-11-19 Weight 225.0 lbs 2017-11-19 Temperature 97.4 degrees Fahrenheit 2017-11-19 Heart Rate 64 bpm 2017-11-19 Respiratory Rate 18 2017-11-19 BMI 30.51 kg/m2 2017-11-19 Blood pressure systolic 129 mmHg 2017-11-19 Blood pressure diastolic 69 mmHg 2017-11-19 MEDICATIONS Medication Instructions Dosage Frequency Start Date End Date Duration Status Isosorbide Mononitrate 30 mg take 1 tablet (30 mg) by oral route once daily in the morning Jun, Active Lipitor 40 mg orally daily take 1 tablet 24h Jun, 90 Active Aspirin 81 mg chew 1 tablet (81 mg) by oral route once daily Jun, Active Vitamin D 2000 UNIT Orally Once a day 1 tablet 24h Not-Taking Protonix 40 MG Orally Once a day 1 tablet 24h Active Plavix 75 mg Orally Once a day take 1 tablet 24h Jun, Active Tizanidine HCl 4 MG Orally at hs prn 1/2-1 tablet as needed Nov, Nov, 28 days Active Toprol XL 25 MG Orally Once a day 1 tablet 24h Active Fish Oil 1,000 mg 3 Capsule 1 time per day Jun, Active Lisinopril-Hydrochlorothiazide 10-12.5 MG Orally Once a day 1 tablet 24h 30 Active RESULTS No Results PROCEDURES Procedure Date Ordered Result Body Site ON LICENSE OF [facility] VISIT ESTABLISHED PATIENT Nov 19, 2017 INSTRUCTIONS MEDICATIONS ADMINISTERED No Known Medications MEDICAL (GENERAL) HISTORY Type Description Date Medical History hypertension initially dx by Hansel BAUER then ref to Dr. Montoya Medical History Internal Carotid Artery Stenosis- checking every 6 months due to plaque Medical History Radiculopathy- Dr Hinds (spinal injections and has only rec'd 2 injections) Medical History neuropathy Medical History Multivessel Disease - Dr Montoya main Fairing Man and has referred to Dr Padgett at [place] (co-manage disease) Medical History CAD Surgical History heart cath (2013- Heart Cath x3 at [facility]- w/ Stent Placement) 2014- Dr Ortiz at [place] 2012 & 2013 Surgical History cholecystectomy 2000 Surgical History Stent placed - Dr. Montoya 03/2013 Hospitalization History Coronary Angiography was performed after positive stress test. Severe multivessel disease including segment severe stenosis in mid LAD and obtuse marginal branch as well as subtotal occulsion in mid RCA. Normal EF. 03/2013 Hospitalization History Over night after Heart Cath, [place] [facility] 03/2014
--- OUTSIDE RECORDS SUMMARY | 2018-07-29 06:50 | XMS REPORT ---
Author Author RICHARD SANDOVAL [facility] Address [address] [place] [address] Care Team Providers Care Stopper Maker Name Role Phone RICHARD SANDOVAL Unavailable PROBLEMS Type Condition ICD9-CM Code KHL28-PM Code Onset Dates Condition Status SNOMED Code Problem Coronary atherosclerosis due to lipid rich plaque I25.83 Active 76009489 Problem Coronary artery disease involving apache heart, angina presence unspecified, unspecified vessel or lesion type I25.10 Active 45817967 Problem Chronic fatigue R53.82 Active 49673252 Problem Bilateral carotid artery stenosis I65.23 Active 85706728 Problem Tinnitus, bilateral H93.13 Active 0698015026435 Problem Gastroesophageal reflux disease without esophagitis K21.9 Active 537576090 Problem Melanocytic nevus of neck D22.4 Active 535976926 Problem Essential hypertension I10 Active 75654075 Problem Lumbago with sciatica, left side M54.42 Active 999616467 Problem Lumbar radiculopathy, chronic M54.16 Active 181451572 ALLERGIES Substance Reaction Event Type Date Status N.K.D.A. Unknown Non Drug Allergy Oct, Unknown SOCIAL HISTORY No smoking Hx information available PLAN OF CARE Activity Details Follow Up 3-4 weeks Reason:fatigue/ VITAL SIGNS Height 72 in 2016-11-14 Weight 218.7 lbs 2016-11-14 Temperature 97.6 degrees Fahrenheit 2016-11-14 Heart Rate 60 bpm 2016-11-14 Respiratory Rate 18 2016-11-14 BMI 29.66 kg/m2 2016-11-14 Blood pressure systolic 134 mmHg 2016-11-14 Blood pressure diastolic 68 mmHg 2016-11-14 MEDICATIONS Medication Instructions Dosage Frequency Start Date End Date Duration Status Baclofen 10 MG Orally at hs 1 tablet with food or milk Oct, Nov, 30 day(s) Active Lipitor 40 mg orally daily take 1 tablet 24h Jun, 90 Active Lisinopril-Hydrochlorothiazide 10-12.5 MG Orally Once a day 1 tablet 24h Active Fish Oil 1,000 mg 3 Capsule 1 time per day Jun, Active Toprol XL 25 MG Orally Once a day 1 tablet 24h Active Aspirin 81 mg chew 1 tablet (81 mg) by oral route once daily Jun, Active Plavix 75 mg Orally every other day take 1 tablet Jun, Active Isosorbide Mononitrate 30 mg take 1 tablet (30 mg) by oral route once daily in the morning Jun, Active Protonix 40 MG Orally Once a day 1 tablet 24h Active RESULTS Name Result Date Reference Range TESTOSTERONE, FREE AND TOTAL 2016-11-14 Testosterone, Serum 395 [id number] Comment: Free Testosterone(Direct) 6.7 6.6-18.1 PROCEDURES Procedure Date Ordered Related Diagnosis Body Site [facility] Nov [facility], 2016 [facility] VISIT ESTABLISHED PATIENT Nov 14, 2016 VENIPUNCT, ROUTINE* Nov 14, 2016 Office Visit, Est Pt., Level 4 Nov 14, 2016 IMMUNIZATIONS No Known Immunizations
--- OUTSIDE RECORDS SUMMARY | 2018-07-29 06:50 | XMS REPORT ---
Author Author RICHARD SANDOVAL Organization [facility] Address [address] [place] [address] Care Team Providers Care Offset Platemaker Name Role Phone RICHARD SANDOVAL Unavailable PROBLEMS Type Condition ICD9-CM Code PKO32-EZ Code Onset Dates Condition Status SNOMED Code Problem Coronary atherosclerosis due to lipid rich plaque I25.83 Active 21509371 Problem Chronic fatigue R53.82 Active 25810738 Problem Essential hypertension I10 Active 53594174 Problem Bilateral carotid artery stenosis I65.23 Active 34049449 Problem Tinnitus, bilateral H93.13 Active 6928758501203 Problem Lumbago with sciatica, left side M54.42 Active 535343365 Problem Melanocytic nevus of neck D22.4 Active 110510348 Problem Coronary artery disease involving algaaciq heart, angina presence unspecified, unspecified vessel or lesion type I25.10 Active 88614596 Problem Lumbar radiculopathy, chronic M54.16 Active 908327176 Problem Gastroesophageal reflux disease without esophagitis K21.9 Active 463185764 ALLERGIES No Information ENCOUNTERS Encounter Location Date Diagnosis [place] [address] [address] March, [facility] [id number] [place] [address] 74353- 4785 Nov, Pain in thoracic spine M54.6 [facility] [id number] [place] [address] 16990- 1860 Nov, [place] [address] [id number] [place] [address] 34762- 7175 Nov, Pain in thoracic spine M54.6 [place] [address] [place] [address] 75109- 5581 Nov, Seborrheic keratoses L82.1 [place] [address] [place] [address] 29732- 8990 Nov, Pain in thoracic spine M54.6 and Skin lesion L98.9 [place] [id number] [place] [address] 91413- 5343 Oct, [place] [id number] [place] [address] 52846- 1151 Aug, Worried well Z71.1 [facility] [id number] [place] [address] [id number] Jun, Dental examination Z01.20 [place] [address] [address] Jan, [place] [address] [id number] [place] [address] 31007- 6362 Dec, Lumbar radiculopathy, chronic M54.16 [place] [id number] [place] [address] 06733- 9126 Dec, Lumbar radiculopathy, chronic M54.16 and Tinnitus, bilateral H93.13 [place] [id number] [place] [address] 81130- 1792 Oct, Essential hypertension I10 ; Coronary artery disease involving algaaciq heart, angina presence unspecified, unspecified vessel or lesion type I25.10 ; Gastroesophageal reflux disease without esophagitis K21.9 ; Lumbar radiculopathy, chronic M54.16 and Chronic fatigue R53.82 [place] [address] [place] [address] 07316- 0767 Jun, Seborrheic keratoses L82.1 [place] [id number] [place] [address] 10150- 6389 May, Chronic fatigue R53.82 ; Essential hypertension I10 ; Melanocytic nevus of neck D22.4 and Coronary artery disease involving algaaciq heart, angina presence unspecified, unspecified vessel or lesion type I25.10 [place] [address] [facility] [id number] [address] Apr, [facility] [address] [address] March, [facility] [address] [address] March, Essential hypertension I10 ; Coronary artery disease involving algaaciq heart, angina presence unspecified, unspecified vessel or lesion type I25.10 and Chronic fatigue R53.82 [facility] [address] [facility] [id number] [address] Sep, [facility] [address] [address] 1542 Jul, [facility] [address] [address] 2953 Jun, [facility] [address] [address] 5532 Jun, Lumbago 724.2 [facility] [address] [address] Feb, [facility] [address] [address] 5270 Feb, [facility] [address] [address] 4934 Nov, [facility] [address] [address]- 6165 Nov, [facility] [id number] [address]- 9897 Jul, [facility] [id number] [address]- 9796 Jul, [facility] [id number] [address]- 7698 Jul, [facility] [address] [address]- 9531 Jul, [facility] [address] [id number] [place] [address]- 5206 Jun, [facility] [address] [id number] [place] [address]- 9478 Jun, [facility] [address] [id number] [place] [address]- 6186 Dec, [facility] [place] [facility] [address] [id number] [place] [address]- 7026 Dec, [facility] [address] [id number] [place] [address]- 3003 Nov, [facility] [address] [id number] [place] [address]- 2863 Nov, [facility] [address] [id number] [place] [address]- 6938 Nov, [facility] [address] [id number] [place] [address]- 6472 Oct, [facility] [address] [id number] [place] [address]- 3253 Oct, [facility] [address] [id number] [place] [address]- 7667 Oct, [facility] [address] [id number] [place] [address]- 6267 Oct, [facility] [place] [facility] [address] [id number] [place] [address]- 4293 Oct, [facility] [place] [facility] [address] [id number] [place] [address]- 3213 Oct, [facility] [place] [facility] [address] [id number] [place] [address]- 4524 Oct, [facility] [place] [facility] [address] [id number] [place] [address]- 4107 Oct, [facility] [place] [facility] [address] [id number] [place] [address]- 6253 Sep, [facility] [place] [facility] [address] [id number] [place] [address]- 7853 Sep, [facility] [place] [facility] [address] [id number] [place] [address] 2546 Sep, [facility] [place] [facility] [address] [id number] [place] [address]- 9788 Sep, [facility] [place] [facility] [address] [id number] [place] [address]- 2568 Aug, [facility] [place] [facility] [address] [id number] [place] [address]- 4378 Aug, [facility] [place] [facility] [address] [id number] [place] [address]- 8962 Aug, [facility] [place] [facility] [address] [id number] [place] [address]- 8211 Aug, [facility] [place] [facility] [address] [id number] [place] [address]- 7940 Jul, [facility] [place] [facility] [address] [id number] [place] [address]- 7477 Jun, [facility] [place] [facility] [address] [id number] [place] [address]- 8645 Jun, [facility] [place] [facility] [address] [id number] [place] [address] 2546 May, [facility] [place] [facility] [address] [id number] [place] [address]- 2548 Apr, [facility] [place] [facility] [address] [id number] [place] [address]- 2546 March, [facility] [place] [facility] [address] [id number] [place] [address]- 2546 March, [facility] [place] [facility] [address] [id number] [place] [address]- 4646 March, [facility] [id number] [address]- 6186 March, [facility] [address] [address]- 9346 Feb, [facility] [address] [address]- 8516 Aug, [facility] [id number] [address]- 1666 Jun, [facility] [address] [address]- 4526 Jun, [facility] [address] [place] [address] 22386- 4016 Jan, [facility] [address] [address]- 3936 Jan, [facility] [address] [address]- 1126 Dec, [facility] [address] [address]- 1306 Dec, [facility] [address] [address]- 1576 Dec, [facility] [address] [address]- 9906 Dec, [facility] [address] [address]- 6646 Dec, IMMUNIZATIONS No Known Immunizations SOCIAL HISTORY Never Assessed REASON FOR VISIT eye exam PLAN OF CARE VITAL SIGNS MEDICATIONS Unknown [...] History Multivessel Disease - Dr Montoya main [employer] and has referred to Dr Padgett at [facility] (co-manage disease) Medical History CAD Surgical History heart cath (2014- Heart Cath x3 at [facility] Montoya- w/ Stent Placement) 2014- Dr Ortiz at [facility] 2012 & 2013 Surgical History cholecystectomy 2001 Surgical History Stent placed - Dr. Montoya 03/2013 Hospitalization History Coronary Angiography was performed after positive stress test. Severe multivessel disease including segment severe stenosis in mid LAD and obtuse marginal branch as well as subtotal occulsion in mid RCA. Normal EF. 03/2013 Hospitalization History Over night after Heart Cath, [facility] 03/2014
--- OUTSIDE RECORDS SUMMARY | 2018-07-29 06:50 | XMS REPORT ---
Author Author RICHARD SANDOVAL Organization [facility] Address [address] [place] [address] Care Team Providers Care Dynamotor Repairer Name Role Phone RICHARD SANDOVAL Unavailable PROBLEMS Type Condition ICD9-CM Code DPT20-KZ Code Onset Dates Condition Status SNOMED Code Problem Coronary atherosclerosis due to lipid rich plaque I25.83 Active 04761197 Problem Chronic fatigue R53.82 Active 07220612 Problem Essential hypertension I10 Active 07798027 Problem Bilateral carotid artery stenosis I65.23 Active 92404677 Problem Tinnitus, bilateral H93.13 Active 4488924547181 Problem Lumbago with sciatica, left side M54.42 Active 895306539 Problem Melanocytic nevus of neck D22.4 Active 006541969 Problem Coronary artery disease involving quileute heart, angina presence unspecified, unspecified vessel or lesion type I25.10 Active 20994602 Problem Lumbar radiculopathy, chronic M54.16 Active 720223621 Problem Gastroesophageal reflux disease without esophagitis K21.9 Active 457438688 ALLERGIES No Information ENCOUNTERS Encounter Location Date Diagnosis [place] [address] [address] March, [place] [address] [place] [address] [id number] [place] [address] 27719- 5438 Nov, Pain in thoracic spine M54.6 [facility] [address] [place] [address] 01131- 9609 Nov, [place] [address] [place] [id number] [place] [address] 17560- 6640 Nov, Pain in thoracic spine M54.6 [place] [address] [place] [address] 23318- 9981 Nov, Seborrheic keratoses L82.1 [place] [address] [place] [address] 29168- 8355 Nov, Pain in thoracic spine M54.6 and Skin lesion L98.9 [place] [address] [place] [id number] [place] [address] 87224- 5115 Oct, [place] [address] [place] [address] [id number] [place] [address] 46633- 6631 Aug, Worried well Z71.1 [facility] [id number] [place] [address] [id number] Jun, Dental examination Z01.20 [place] [address] [address]- 3873 Jan, [place] [address] [place] [id number] [place] [address] 99794- 8254 Dec, Lumbar radiculopathy, chronic M54.16 [place] [address] [place] [id number] [place] [address] 69801- 7267 Dec, Lumbar radiculopathy, chronic M54.16 and Tinnitus, bilateral H93.13 [place] [address] [place] [id number] [place] [address] 68780- 4683 Oct, Essential hypertension I10 ; Coronary artery disease involving quileute heart, angina presence unspecified, unspecified vessel or lesion type I25.10 ; Gastroesophageal reflux disease without esophagitis K21.9 ; Lumbar radiculopathy, chronic M54.16 and Chronic fatigue R53.82 [place] [address] [place] [address] 51155- 0132 Jun, Seborrheic keratoses L82.1 [place] [address] [place] [address] [id number] [place] [address] 86747- 2925 May, Chronic fatigue R53.82 ; Essential hypertension I10 ; Melanocytic nevus of neck D22.4 and Coronary artery disease involving quileute heart, angina presence unspecified, unspecified vessel or lesion type I25.10 [place] [address] [facility] [id number] [address]- 4118 Apr, [facility] [address], [place] [address]- 0427 March, [facility] [address], [place] [address]- 7892 March, Essential hypertension I10 ; Coronary artery disease involving quileute heart, angina presence unspecified, unspecified vessel or lesion type I25.10 and Chronic fatigue R53.82 [facility] [address] [facility] [id number] [address]- 1137 Sep, [facility] [address], [place] [address]- 0754 Jul, [facility] [address], [place] [address]- 5501 Jun, [facility] [address], [place] [address]- 0838 Jun, Lumbago 724.2 [facility] [address], [place] [address]- 6112 Feb, [facility] [address], [place] [address]- 7929 Feb, [facility] [address], [place] [address]- 5805 Nov, [facility] [address], [place] [address]- 4877 Nov, [facility] [address] [id number], [place] [address]- 1635 Jul, [facility] [address] [id number], [place] [address]- 9293 Jul, [facility] [address] [id number] [address]- 5668 Jul, [facility] [address], [place] [address]- 7523 Jul, [facility] [address] [id number] [place] [address]- 6014 Jun, [facility] [address] [id number] [place] [address]- 7815 Jun, [facility] [address] [id number] [place] [address]- 4466 Dec, [facility] [place] [facility] [address] [id number] [place] [address]- 1313 Dec, [facility] [address] [id number] [place] [address]- 6449 Nov, [facility] [address] [id number] [place] [address]- 5093 Nov, [facility] [address] [id number] [place] [address]- 2839 Nov, [facility] [address] [id number] [place] [address]- 2141 Oct, [facility] [address] [id number] [place] [address]- 0268 Oct, [facility] [address] [id number] [place] [address]- 4671 Oct, [facility] [address] [id number] [place] [address]- 4576 Oct, [facility] [place] [facility] [address] [id number] [place] [address]- 0487 Oct, [facility] [place] [facility] [address] [id number] [place] [address]- 2516 Oct, [facility] [place] [facility] [address] [id number] [place] [address]- 4347 Oct, [facility] [place] [facility] [address] [id number] [place] [address]- 7407 Oct, [facility] [place] [facility] [address] [id number] [place] [address]- 8393 Sep, [facility] [place] [facility] [address] [id number] [place] [address]- 6063 Sep, [facility] [place] [facility] [address] [id number] [place] [address] 2546 Sep, [facility] [place] [facility] [address] [id number] [place] [address]- 9694 Sep, [facility] [place] [facility] [address] [id number] [place] [address]- 7331 Aug, [facility] [place] [facility] [address] [id number] [place] [address]- 0743 Aug, [facility] [place] [facility] [address] [id number] [place] [address]- 0764 Aug, [facility] [place] [facility] [address] [id number] [place] [address]- 0613 Aug, [facility] [place] [facility] [address] [id number] [place] [address]- 0428 Jul, [facility] [place] [facility] [address] [id number] [place] [address]- 6265 Jun, [facility] [place] [facility] [address] [id number] [place] [address]- 7696 Jun, [facility] [place] [facility] [address] [id number] [place] [address] 2546 May, [facility] [place] [facility] [address] [id number] [place] [address]- 2540 Apr, [facility] [place] [facility] [address] [id number] [place] [address]- 2546 March, [facility] [place] [facility] [address] [id number] [place] [address]- 2546 March, [facility] [place] [facility] [address] [id number] [place] [address]- 8886 March, [facility] [address] [id number] [address]- 3706 March, [facility] [address], [place] [address]- 2856 Feb, [facility] [address], [place] [address]- 6806 Aug, [facility] [id number] [place] [address] 83522- 8806 Jun, [facility] [address], [place] [address]- 8474 Jun, [facility] [id number] [place] [address] 73013- 3306 Jan, [facility] [address], [place] [address]- 6826 Jan, [facility] [id number] [place] [address] 99130- 2669 Dec, [facility] [id number] [place] [address] 58706- 5886 Dec, [facility] [address], [place] [address]- 9606 Dec, [facility] [address], [place] [address]- 9496 Dec, [facility] [address], [place] [address]- 2876 Dec, IMMUNIZATIONS No Known Immunizations SOCIAL HISTORY Never Assessed REASON FOR VISIT Refill request PLAN OF CARE VITAL SIGNS MEDICATIONS Medication Instructions Dosage Frequency Start Date End Date Duration Status Tizanidine HCl 4 MG Orally at hs prn 2 tablet as needed Nov, Active RESULTS No Results PROCEDURES No Known procedures [...] History Multivessel Disease - Dr Montoya [employer] and has referred to Dr Padgett at [place] (co-manage disease) Medical History CAD Surgical History heart cath (2013- Heart Cath x3 at [address] Montoya- w/ Stent Placement) 2014- Dr Ortiz at [place] 2012 & 2013 Surgical History cholecystectomy 2000 Surgical History Stent placed - Dr. Montoya 03/2013 Hospitalization History Coronary Angiography was performed after positive stress test. Severe multivessel disease including segment severe stenosis in mid LAD and obtuse marginal branch as well as subtotal occulsion in mid RCA. Normal EF. 03/2013 Hospitalization History Over night after Heart Cath, [facility]. 03/2014
--- OUTSIDE RECORDS SUMMARY | 2018-07-29 06:50 | XMS REPORT ---
Author ANTONIA Guy [facility] eClinicalWorks Address Unknown Phone Unavailable Care Team Providers Care Electron Tube Assembler Name Role Phone ANTONIA LYONS CP Unavailable Allergies, Adverse Reactions, Alerts Substance Reaction Event Type N.K.D.A. Info Not Available Non Drug Allergy Problems Problem Type Condition Code Onset Dates Condition Status Problem Essential hypertension I10 Active Problem Coronary artery disease involving [place] heart, angina presence unspecified, unspecified vessel or lesion type I25.10 Active Problem Melanocytic nevus of neck D22.4 Active Problem Bilateral carotid artery stenosis I65.23 Active Assessment Seborrheic keratoses L82.1 Active Problem Chronic fatigue R53.82 Active Problem Coronary atherosclerosis due to lipid rich plaque I25.83 Active Medications Medication Code System Code Instructions Start Date End Date Status Dosage Toprol XL [facility] [address]-88 25 MG Orally Once a day 1 tablet Plavix [facility] [address]-36 75 mg Orally every other day Jul 16, 2013 take 1 tablet Fish Oil [facility] [address]-82 1,000 mg Jul 16, 2013 3 Capsule 1 time per day Lipitor [facility] [address]-85 40 mg Jul 16, 2013 take 1 tablet (40 mg ) by oral route once daily Lisinopril-Hydrochlorothiazide [facility] [address]-69 10-12.5 MG Orally Once a day 1 tablet Protonix [facility] [address]-56 40 MG Orally Once a day 1 tablet Isosorbide Mononitrate [facility] [address]-49 30 mg Jul 16, 2013 take 1 tablet (30 mg) by oral route once daily in the morning Aspirin [facility] [address]-25 81 mg Jul 16, 2013 chew 1 tablet (81 mg ) by oral route once daily Procedures Procedure Coding System Code Date [facility] VISIT ESTABLISHED PATIENT CPT-4 G0467 Jun 25, 2016 Office Visit, Est Pt., Level 2 CPT-4 79409 Jun 25, 2016 CRYOTHERAPY OF SKIN CPT-4 49103 Jun 25, 2016 Vital Signs Date/Time: Jun 25, 2016 Cardiac Monitoring Heart Rate 68 bpm Weight 215.2 lbs Height 72 in BMI 29.18 Index Blood Pressure Diastolic 77 mmHg Blood Pressure Systolic 110 mmHg Results No Known Results Summary Purpose eClinicalWorks Submission
--- OUTSIDE RECORDS SUMMARY | 2018-07-29 06:50 | XMS REPORT ---
Author Author RICHARD SANDOVAL Organization [facility] Address [address] [place] [address] Care Team Providers Care Washcoat Wiper Name Role Phone PINKYJohnnie RICHARD Unavailable PROBLEMS Type Condition ICD9-CM Code [id number] Code Onset Dates Condition Status SNOMED Code Problem Coronary atherosclerosis due to lipid rich plaque I25.83 Active 72985373 Problem Chronic fatigue R53.82 Active 26310910 Problem Essential hypertension I10 Active 82730716 Problem Bilateral carotid artery stenosis I65.23 Active 03677160 Problem Tinnitus, bilateral H93.13 Active 2071986879302 Problem Lumbago with sciatica, left side M54.42 Active 950459252 Problem Melanocytic nevus of neck D22.4 Active 336204882 Problem Coronary artery disease involving [place] heart, angina presence unspecified, unspecified vessel or lesion type I25.10 Active 68391706 Problem Lumbar radiculopathy, chronic M54.16 Active 904551546 Problem Gastroesophageal reflux disease without esophagitis K21.9 Active 438869011 ALLERGIES No Information SOCIAL HISTORY Never Assessed PLAN OF CARE VITAL SIGNS MEDICATIONS Medication Instructions Dosage Frequency Start Date End Date Duration Status Baclofen 20 mg Orally at bedtime 1 tablet with food or milk 28 days Active RESULTS No Results PROCEDURES No Known procedures IMMUNIZATIONS No Known Immunizations MEDICAL (GENERAL) HISTORY Type Description Date Medical History hypertension initially dx by Hansel BAUER then ref to Dr. Montoya Medical History Internal Carotid Artery Stenosis- checking every 6 months due to plaque Medical History Radiculopathy- Dr Hinds (spinal injections and has only rec'd 2 injections) Medical History neuropathy Medical History Multivessel Disease - Dr Lindsay de la garza Case Resolution Specialist and has referred to Dr Padgett at [place] (co-manage disease) Medical History CAD Surgical History heart cath (2013- Heart Cath x3 at [address] Montoya- w/ Stent Placement) 2014- Dr Ortiz at [place] 2012 & 2013 Surgical History cholecystectomy 2001 Surgical History Stent placed - Dr. Montoya 03/2013 Hospitalization History Coronary Angiography was performed after positive stress test. Severe multivessel disease including segment severe stenosis in mid LAD and obtuse marginal branch as well as subtotal occulsion in mid RCA. Normal EF. 03/2013 Hospitalization History Over night after Heart Cath, [facility]. 03/2014
--- OUTSIDE RECORDS SUMMARY | 2018-07-29 06:51 | XMS REPORT ---
Author Author SAUNDRA JONES [facility] eClinicalWorks Address Unknown Phone Unavailable Care Team Providers Care Software Test Engineer Name Role Phone SAUNDRA JONES CP Unavailable Allergies No Known Allergies Problems Problem Type Condition Code Onset Dates Condition Status Problem Lumbago 724.2 Active Problem Unspecified neuralgia, neuritis, and radiculitis 729.2 Active Problem Dehydration 276.51 Active Problem Acute sinusitis, unspecified 461.9 Active Problem Acute bronchitis 466.0 Active Problem Essential hypertension, benign 401.1 Active Problem Shortness of breath 786.05 Active Problem Other nonspecific findings on examination of blood, elevated C- reactive protein (CRP) 790.95 Active Problem 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
--- OUTSIDE RECORDS SUMMARY | 2018-07-29 06:51 | XMS REPORT ---
Author Author CARMENMIN ATWOOD Leonor [facility] Address Unknown Care Team Providers Care Supervisor Phosphorus Processing Name Role Phone MIN [place] Unavailable PROBLEMS Type Condition ICD9-CM Code INM99-FN Code Onset Dates Condition Status SNOMED Code Problem Coronary atherosclerosis due to lipid rich plaque I25.83 Active 60770311 Problem Chronic fatigue R53.82 Active 30756523 Problem Essential hypertension I10 Active 89860987 Problem Bilateral carotid artery stenosis I65.23 Active 78469889 Problem Tinnitus, bilateral H93.13 Active 1962642268477 Problem Lumbago with sciatica, left side M54.42 Active 230861602 Problem Melanocytic nevus of neck D22.4 Active 053437074 Problem Coronary artery disease involving [place] heart, angina presence unspecified, unspecified vessel or lesion type I25.10 Active 77014964 Problem Lumbar radiculopathy, chronic M54.16 Active 473543314 Problem Gastroesophageal reflux disease without esophagitis K21.9 Active 011074703 ALLERGIES No Known Allergies ENCOUNTERS Encounter Location Date Diagnosis [facility] [id number] [place] [address]18- 2096 Nov, Pain in thoracic spine M54.6 [facility] [id number] [place] [address] 80651- 7513 Nov, [facility] [id number] [place] [address] 56277- 2477 Nov, Pain in thoracic spine M54.6 [facility] [id number] [place] [address] 86842- 9582 Nov, Seborrheic keratoses L82.1 [facility] [address] [place] [address] 66554- 9749 Nov, Pain in thoracic spine M54.6 and Skin lesion L98.9 [facility] [address] [address] Oct, [facility] [id number] [place] [address] 63903- 8398 Aug, Worried well Z71.1 [facility] [address] [id number] Jun, Dental examination Z01.20 [facility] [id number] [place] [address] 30212- 4975 Jan, [facility] [id number] [place] [address] 41786- 4728 Dec, Lumbar radiculopathy, chronic M54.16 [facility] [place] [id number] [place] [address] 18680- 4712 Dec, Lumbar radiculopathy, chronic M54.16 and Tinnitus, bilateral H93.13 [facility] [id number] [place] [address] 56290- 9626 Oct, Essential hypertension I10 ; Coronary artery disease involving [place] heart, angina presence unspecified, unspecified vessel or lesion type I25.10 ; Gastroesophageal reflux disease without esophagitis K21.9 ; Lumbar radiculopathy, chronic M54.16 and Chronic fatigue R53.82 [facility] [place] [address] [place] [address] 93292- 2555 Jun, Seborrheic keratoses L82.1 [facility] [place] [address] [place] [address] 91571- 0834 May, Chronic fatigue R53.82 ; Essential hypertension I10 ; Melanocytic nevus of neck D22.4 and Coronary artery disease involving [place] heart, angina presence unspecified, unspecified vessel or lesion type I25.10 [facility] [address] [place] [address] 75413- 4315 Apr, [facility] [place] [id number] [place] [address] 84688- 1878 March, [facility] [address] [address] March, Essential hypertension I10 ; Coronary artery disease involving [place] heart, angina presence unspecified, unspecified vessel or lesion type I25.10 and Chronic fatigue R53.82 [facility] [address] [facility] [id number], [place] [address] Sep, [facility] [address] [facility] [id number], [place] [address] Jul, [facility] [address] [facility] [id number], [place] [address] Jun, [facility] [address] [address] Jun, Lumbago 724.2 [facility] [address] [address] Feb, [facility] [address] [address] Feb, [facility] [address], [place] [address] Nov, [facility] [address] [address] Nov, [facility] [address] [address] Jul, [facility] [address] [facility] [id number], [place] [address] Jul, [facility] [address], [place] [address] Jul, [facility] [address] [facility] [id number], [place] [address] Jul, [facility] [address], [place] [address] Jun, [facility] [address] [id number] [place] [address] Jun, [facility] [address] [id number] [place] [address] Dec, [facility] [place] [facility] [address] [id number] [place] [address] 2806 Dec, [facility] [place] [facility] [address] [id number] [place] [address] 5771 Nov, [facility] [address] [id number] [place] [address] 8805 Nov, [facility] [place] [facility] [address] [id number] [place] [address] 8264 Nov, [facility] [address] [id number] [place] [address] Oct, [facility] [address] [id number] [place] [address]- 3377 Oct, [facility] [place] [facility] [address] [id number] [place] [address]- 7665 Oct, [facility] [place] [facility] [address] [id number] [place] [address]- 1334 Oct, [facility] [place] [facility] [address] [id number] [place] [address] 5[address] Oct, [facility] [place] [facility] [address] [id number] [place] [address]- 9955 Oct, [facility] [place] [facility] [address] [id number] [place] [address] 0647 Oct, [facility] [place] [facility] [address] [id number] [place] [address]- 8579 Oct, [facility] [place] [facility] [address] [id number] [place] [address]- 4972 Sep, [facility] [place] [facility] [address] [id number] [address] Sep, [facility] [place] [facility] [address] [id number] [place] [address]- 2814 Sep, [facility] [place] [facility] [address] [id number] [place] [address]- 4698 Sep, [facility] [place] [facility] [address] [id number] [place] [address]- 0146 Aug, [facility] [place] [facility] [address] [id number] [place] [address]- 8721 Aug, [facility] [place] [facility] [address] [id number] [place] [address]- 0100 Aug, [facility] [place] [facility] [address] [id number] [place] [address]- 7803 Aug, [facility] [place] [facility] [address] [id number] [place] [address]- 0218 Jul, [facility] [place] [facility] [address] [id number] [place] [address]- 3125 Jun, [facility] [place] [facility] [address] [id number] [place] [address]- 1455 Jun, [facility] [place] [facility] [address] [id number] [place] [address]- 3225 May, [facility] [place] [facility] [address] [id number], [place] [address] Apr, [facility] [place] [facility] [address] [id number] [place] [address]- 0379 March, [facility] [place] [facility] [address] [id number] [place] [address]- 5387 March, [facility] [place] [facility] [address] [id number] [place] [address]- 2012 March, [facility] [place] [facility] [address] [id number] [place] [address]- 8481 March, [facility] [place] [facility] [address], [place] [address] Feb, [facility] [address] [address] Aug, [facility] [address] [address] Jun, [facility] [address] [address]- [address] Jun, [facility] [address], [place] [address] Jan, [facility] [address] [address] Jan, [facility] [address], [place] [address] Dec, [facility] [id number] [address] Dec, [facility] [address] [address] Dec, [facility] [address] [address]- [address] Dec, [facility] [address], [place] [address]- [address]87 Dec, IMMUNIZATIONS No Known Immunizations SOCIAL HISTORY Never Assessed REASON FOR VISIT PAIN PLAN OF CARE Activity Details Follow Up prn Reason:te when med clearance is faxed back VITAL SIGNS MEDICATIONS Medication Instructions Dosage Frequency Start Date End Date Duration Status Plavix 75 mg Orally every other day take 1 tablet Jun, Active Toprol XL 25 MG Orally Once a day 1 tablet 24h Active Lipitor 40 mg orally daily take 1 tablet 24h Jun, 90 Active Isosorbide Mononitrate 30 mg take 1 tablet (30 mg) by oral route once daily in the morning Jun, Active Protonix 40 MG Orally Once a day 1 tablet 24h Active Lisinopril-Hydrochlorothiazide 10-12.5 MG Orally Once a day 1 tablet 24h Active Baclofen 20 MG TAKE ONE TABLET BY MOUTH AT BEDTIME WITH FOOD OR MILK 28 Active Aspirin 81 mg chew 1 tablet (81 mg) by oral route once daily Jun, Active Vitamin D 2000 UNIT Orally Once a day 1 tablet 24h Active Fish Oil 1,000 mg 3 Capsule 1 time per day Jun, Active RESULTS No Results PROCEDURES Procedure Date Ordered Result Body Site LTD ORAL EVALUATION - PROBLEM FOCUS Jun 27, 2017 INTRAORL-PERIAPICAL 1 FILM 98107 Jun 27, 2017 INSTRUCTIONS MEDICATIONS ADMINISTERED No Known Medications MEDICAL (GENERAL) HISTORY Type Description Date Medical History hypertension initially dx by Hansel BAUER then ref to Dr. Montoya Medical History Internal Carotid Artery Stenosis- checking every 6 months due to plaque Medical History Radiculopathy- Dr Hinds (spinal injections and has only rec'd 2 injections) Medical History neuropathy Medical History Multivessel Disease - Dr Montoya main Database Coordinator and has referred to Dr Padgett at [place] (co-manage disease) Medical History CAD Surgical History heart cath (2013- Heart Cath x3 at [address] Montoya- w/ Stent Placement) 2014- Dr Ortiz at [place] 2012 & 2013 Surgical History cholecystectomy 2000 Surgical History Stent placed - Dr. Montoya 03/2013 Hospitalization History Coronary Angiography was performed after positive stress test. Severe multivessel disease including segment severe stenosis in mid LAD and obtuse marginal branch as well as subtotal occulsion in mid RCA. Normal EF. 03/2013 Hospitalization History Over night after Heart Cath, [facility] 03/2014
--- OUTSIDE RECORDS SUMMARY | 2018-07-29 06:51 | XMS REPORT ---
Author Author SAUNDRA JONES [facility] eClinicalWorks Address Unknown Phone Unavailable Care Team Providers Care Truck Mechanic Apprentice Name Role Phone SAUNDRA JONES CP Unavailable Allergies No Known Allergies Problems Problem Type Condition ICD-9 Code Onset Dates Condition Status Problem Lumbago [...]
--- OUTSIDE RECORDS SUMMARY | 2018-07-29 06:53 | XMS REPORT | Continuity of Care Document ---
Author Author [facility] Address Unknown Phone Unavailable Allergies Active Description Code Type Severity Reaction Onset Reported/Identified Relationship to Patient Clinical Status Yes No Known Drug Allergies [id number] Drug Allergy Unknown N/A 12/06/2012 Medications There is no data. Problems Date Dx Coded Attending Type Code Diagnosis Diagnosed By LILLIAN CLEMONS, MARLIN Lee Ot Z48.812 ENCNTR FOR SURGICAL AFTCR FOLLOWING SURG MARLIN MONTOYA MD Ot Z95.5 PRESENCE OF CORONARY ANGIOPLASTY IMPLANT 12/23/2011 401.1 HYPERTENSION, BENIGN ESSENTIAL 12/23/2011 461.9 [...] DO, HAKAN K 461.9 Sinusitis Acute 12/23/2011 HAKAN FREDERICK DO 466.0 Bronchitis, Acute 01/14/2012 702.19 OTHER SEBORRHEIC [...] AND SUBCUTANEOUS TISSUE 01/14/2012 HAKAN FREDERICK DO 702.19 OTHER SEBORRHEIC KERATOSIS 01/14/2012 HAKAN FREDERICK DO 709.9 UNSPECIFIED DISORDER OF SKIN AND SUBCUTANEOUS TISSUE 01/14/2012 HAKAN FREDERICK DO K 702.19 OTHER SEBORRHEIC KERATOSIS 01/14/2012 HAKAN FREDERICK DO K 709.9 UNSPECIFIED DISORDER OF SKIN AND SUBCUTANEOUS TISSUE 01/28/2012 302.72 MALE ERECTILE DISORDER 01/28/2012 302.72 MALE ERECTILE DISORDER 01/28/2012 302.72 MALE ERECTILE DISORDER 01/28/2012 HAAKN FREDERICK DO 302.72 MALE ERECTILE DISORDER 01/28/2012 HAKAN FREDERICK DO 302.72 MALE ERECTILE DISORDER 01/28/2012 HAKAN FREDERICK DO 302.72 MALE ERECTILE DISORDER 01/28/2012 HAKAN FREDERICK DO 302.72 MALE ERECTILE DISORDER 07/13/2012 276.51 DEHYDRATION [...] K 786.50 CHEST PAIN 04/02/2013 790.95 ELEVATED C- REACTIVE PROTEIN (CRP) 04/02/2013 FREDERICK DO, HAKAN K 790.95 ELEVATED C-REACTIVE PROTEIN (CRP) 04/02/2013 FREDERICK DO, HAKAN K 790.95 ELEVATED C-REACTIVE PROTEIN (CRP) 04/02/2013 FREDERICK DO, HAKAN K 790.95 ELEVATED C-REACTIVE PROTEIN (CRP) 04/02/2013 HAKAN FREDERICK DO K 790.95 ELEVATED C-REACTIVE PROTEIN (CRP) 04/09/2013 MARLIN MONTOYA MD Ot 401.9 HYPERTENSION NOS 04/09/2013 MARLIN MONTOYA MD Ot 413.9 ANGINA PECTORIS NEC/NOS 04/09/2013 MARLIN MONTOYA MD Ot 414.01 CORONARY ATHEROSCLEROSIS OF [place] CORON 04/09/2013 MARLIN MONTOYA MD Ot 426.50 BUNDLE BRANCH BLOCK NOS 04/09/2013 MARILN MONTOYA MD Ot 530.81 ESOPHAGEAL REFLUX 04/09/2013 [...] 02/28/2015 MARLIN MONTOYA MD Ot 308.1 02/28/2015 LILLIAN CLEMONS MARLIN J Ot 414.00 02/28/2015 LILLIAN CLEMONS, MARLIN J Ot 426.4 02/28/2015 LILLIAN CLEMONS, MARLIN J Ot 786.50 03/24/2015 LILLIAN CLEMONS, BASHAR J Ot 272.4 03/24/2015 LILLIAN CLEMONS, BASHAR J Ot 401.9 03/24/2015 LILLIAN CLEMONS, BASHAR J Ot 414.9 03/24/2015 LILLIAN CLEMONS, BASHAR J Ot 786.09 03/24/2015 LILLIAN CLEMONS, BASHAR J Ot 272.4 03/24/2015 LILLIAN CLEMONS, BASHAR J Ot 401.9 03/24/2015 LILLIAN CLEMONS, BASHAR J Ot 414.9 03/24/2015 LILLIAN CLEMONS, MARLIN J Ot 786.09 03/24/2015 LILLIAN CLEMONS, BENJAMINHAR J Ot 272.4 03/24/2015 LILLIAN CLEMONS, BENJAMINHAR J Ot 401.9 03/24/2015 LILLIAN CLEMONS, MARLIN J Ot 414.00 03/24/2015 LILLIAN CLEMONS, MARLIN J Ot 786.09 04/07/2015 LILLIAN CLEMONS, BENJAMINHAR J Ot 272.4 04/07/2015 LILLIAN CLEMONS, BENJAMINHAR J Ot 401.9 04/07/2015 LILLIAN CLEMONS, BENJAMINHAR J Ot 414.9 04/07/2015 LILLIAN CLEMONS, MARLIN [...] ROONEY Ot 414.00 06/23/2015 LILLIAN CLEMONS, MARLIN Lee Ot 272.4 06/23/2015 LILLIAN CLEMONS, MARLIN Lee Ot 308.1 06/23/2015 LILLIAN CLEMONS, MARLIN Lee Ot 414.00 06/23/2015 LILLIAN CLEMONS, MARLIN Lee Ot 426.4 06/23/2015 LILLIAN CLEMONS, MARLIN Lee [...] LILLIAN CLEMONS, MARLIN Lee Ot 786.09 06/23/2015 MARLIN MONTOYA MD Ot 272.4 06/23/2015 LILLIAN CLEMONS, MARLIN Lee Ot 401.9 06/23/2015 LILLIAN CLEMONS, MARLIN Lee Ot 414.00 06/23/2015 LILLIAN CLEMONS, MARLIN Lee Ot 786.09 09/01/2015 SAMANTHA PERALTA MD Ot M51.36 OTHER INTERVERTEBRAL DISC DEGENERATION, 09/01/2015 SAMANTHA PERALTA MD Ot 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 10/24/2015 Ot 721.3 10/24/2015 Ot 599.70 10/24/2015 Ot 600.01 10/24/2015 MARLIN MONTOYA MD Ot 272.4 10/24/2015 LILLIAN CLEMONS, MARLIN Lee Ot 401.9 10/24/2015 MARLIN MONTOYA MD Ot 414.01 10/24/2015 KENYATTA BANERJEE Ot 724.2 10/24/2015 IBIS ROONEY Ot 272.4 10/24/2015 IBIS ROONEY Ot 414.00 10/24/2015 MARLIN MONTOYA MD Ot 272.4 10/24/2015 MARLIN MONTOYA MD Ot 308.1 10/24/2015 MARLIN MONTOYA MD Ot 414.00 10/24/2015 MARLIN MONTOYA MD Ot 426.4 10/24/2015 MARLIN MONTOYA MD Ot 786.50 10/24/2015 MARLIN MONTOYA MD Ot 272.4 10/24/2015 MARLIN MONTOYA MD Ot 401.9 10/24/2015 MARLIN MONTOYA MD Ot 414.9 10/24/2015 MARLIN MONTOYA MD Ot 786.09 10/24/2015 MARLIN MONTOYA MD Ot 272.4 10/24/2015 MARLIN MONTOYA MD Ot 401.9 10/24/2015 MARLIN MONOTYA MD Ot 414.9 10/24/2015 MARLIN MONTOYA MD Ot 786.09 10/24/2015 MARLIN MONTOYA MD Ot 272.4 10/24/2015 MARLIN MONTOYA MD Ot 401.9 10/24/2015 MARLIN MONTOYA MD Ot 414.00 10/24/2015 MARLIN MNOTOYA MD Ot 786.09 10/24/2015 SAUNDRA JONES APRN [...] 01/05/2016 SAMANTHA PERALTA MD Ot Z79.899 OTHER SPRING BENDER (CURRENT) DRUG THERAPY 03/04/2016 MARLIN MONTOYA MD Ot E78.2 MIXED HYPERLIPIDEMIA 03/04/2016 MARLIN MONTOYA MD Ot I10 ESSENTIAL (PRIMARY) HYPERTENSION 03/04/2016 MARLIN MONTOYA MD Ot I25.10 ATHSCL HEART DISEASE OF [place] CORONARY 03/04/2016 MARLIN MONTOYA MD Ot R07.89 OTHER CHEST PAIN 03/21/2016 MARLIN MONTOYA MD Ot E78.2 MIXED HYPERLIPIDEMIA 03/21/2016 MARLIN MONTOYA MD Ot I10 ESSENTIAL (PRIMARY) HYPERTENSION 03/21/2016 MARLIN MONTOYA MD Ot I25.10 ATHSCL HEART DISEASE OF [place] CORONARY 03/21/2016 MARLIN MONTOYA MD Ot R07.89 [...] MONTOYA MD Ot 414.01 CORONARY ATHEROSCLEROSIS OF [place] CORON 09/02/2016 KENYATTA BANERJEE Ot 724.2 LUMBAGO [...] MD Ot 786.09 RESPIRATORY ABNORM NEC 09/02/2016 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 JONES 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 Ot 724.2 LUMBAGO 09/02/2016 MARLIN MONTOYA MD Ot I25.10 ATHSCL HEART DISEASE OF [place] CORONARY 09/02/2016 MARLIN MONTOYA MD Ot I73.9 PERIPHERAL VASCULAR DISEASE, UNSPECIFIED 09/02/2016 MARLIN MONTOYA MD Ot R25.2 CRAMP AND SPASM 09/02/2016 MARLIN MONTOYA MD Ot E78.2 MIXED HYPERLIPIDEMIA 09/02/2016 MARLIN MONTOYA MD Ot I10 ESSENTIAL (PRIMARY) HYPERTENSION 09/02/2016 MARLIN MONTOYA MD Ot I25.10 ATHSCL HEART DISEASE OF [place] CORONARY 09/02/2016 MARLIN MONTOYA MD Ot R07.89 OTHER CHEST PAIN 09/02/2016 SAMANTHA PERALTA MD Ot M51.16 INTERVERTEBRAL DISC DISORDERS W RADICULO 09/02/2016 SAMANTHA PERALTA MD Ot M53.3 SACROCOCCYGEAL DISORDERS, NOT ELSEWHERE 09/02/2016 SAMANTHA PERALTA MD Ot Z79.899 OTHER INTERMEDIATE (CURRENT) DRUG THERAPY 10/08/2016 MARLIN MONTOYA MD [...] MD Ot M53.3 SACROCOCCYGEAL DISORDERS, NOT ELSEWHERE 12/30/2016 SAMANTHA PERALTA MD Ot Z79.899 OTHER INTERMEDIATE (CURRENT) DRUG THERAPY 01/05/2017 MARLIN MONTOYA MD Ot Z48.812 ENCNTR FOR SURGICAL AFTCR FOLLOWING SURG 01/05/2017 MARLIN MONTOYA MD Ot Z95.5 PRESENCE OF CORONARY ANGIOPLASTY IMPLANT 01/06/2017 MARLIN MONTOYA MD Ot Z48.812 ENCNTR FOR SURGICAL AFTCR FOLLOWING SURG 01/06/2017 MARLIN MONTOYA MD Ot Z95.5 PRESENCE OF CORONARY ANGIOPLASTY IMPLANT 01/10/2017 MARLIN MONTOYA MD Ot Z48.812 ENCNTR FOR SURGICAL AFTCR FOLLOWING SURG 01/10/2017 MARLIN MONTOYA MD Ot Z95.5 PRESENCE OF CORONARY ANGIOPLASTY IMPLANT 01/10/2017 MARLIN MONTOYA MD Ot Z48.812 ENCNTR FOR SURGICAL AFTCR FOLLOWING SURG 01/10/2017 MARLIN MONTOYA MD Ot Z95.5 PRESENCE OF CORONARY ANGIOPLASTY IMPLANT 01/14/2017 MARLIN MONTOYA MD Ot Z48.812 ENCNTR FOR SURGICAL AFTCR FOLLOWING SURG 01/14/2017 MARLIN MONTOYA MD Ot Z95.5 PRESENCE OF CORONARY ANGIOPLASTY IMPLANT 01/20/2017 MARLIN MONTOYA MD Ot Z48.812 ENCNTR FOR SURGICAL AFTCR FOLLOWING SURG 01/20/2017 MARLIN MONTOYA MD Ot Z95.5 PRESENCE OF CORONARY ANGIOPLASTY IMPLANT 02/13/2017 MARLIN MONTOYA MD Ot Z48.812 ENCNTR FOR SURGICAL AFTCR FOLLOWING SURG 02/13/2017 MARLIN MONTOYA MD Ot Z95.5 PRESENCE OF CORONARY ANGIOPLASTY IMPLANT 02/19/2017 MARLIN MONTOYA MD Ot Z48.812 ENCNTR FOR SURGICAL AFTCR FOLLOWING SURG 02/19/2017 MARLIN MONTOYA MD Ot Z95.5 PRESENCE OF CORONARY ANGIOPLASTY IMPLANT 03/24/2017 SAMANTHA PERALTA MD Ot M51.16 INTERVERTEBRAL DISC DISORDERS W RADICULO 03/24/2017 SAMANTHA PERALTA MD Ot M53.3 SACROCOCCYGEAL DISORDERS, NOT ELSEWHERE 04/03/2017 MARLIN MONTOYA MD Ot Z48.812 ENCNTR FOR SURGICAL AFTCR FOLLOWING SURG 04/03/2017 MARLIN MONTOYA MD Ot Z95.5 PRESENCE OF CORONARY ANGIOPLASTY IMPLANT 04/06/2017 MARLIN MONTOYA MD Ot Z48.812 ENCNTR FOR SURGICAL AFTCR FOLLOWING SURG 04/06/2017 MARLIN MONTOYA MD Ot Z95.5 PRESENCE OF CORONARY ANGIOPLASTY IMPLANT 04/06/2017 MARLIN MONTOYA MD Ot Z48.812 ENCNTR FOR SURGICAL AFTCR FOLLOWING SURG 04/06/2017 MARLIN MONTOYA MD Ot Z95.5 PRESENCE OF CORONARY ANGIOPLASTY IMPLANT 04/06/2017 MARLIN MONTOYA MD Ot Z48.812 ENCNTR FOR SURGICAL AFTCR FOLLOWING SURG 04/06/2017 MARLIN MONTOYA MD Ot Z95.5 PRESENCE OF CORONARY ANGIOPLASTY IMPLANT 04/07/2017 MARLIN MONTOYA MD Ot Z48.812 ENCNTR FOR SURGICAL AFTCR FOLLOWING SURG 04/07/2017 MARLIN MONTOYA MD Ot Z95.5 PRESENCE OF CORONARY ANGIOPLASTY IMPLANT 04/09/2017 MARLIN MONTOYA MD Ot Z48.812 ENCNTR FOR SURGICAL AFTCR FOLLOWING SURG 04/09/2017 MARLIN MONTOYA MD Ot Z95.5 PRESENCE OF CORONARY ANGIOPLASTY IMPLANT 04/21/2017 MARLIN MONTOYA MD Ot Z48.812 ENCNTR FOR SURGICAL AFTCR FOLLOWING SURG 04/21/2017 MARLIN MONTOYA MD Ot Z95.5 PRESENCE OF CORONARY ANGIOPLASTY IMPLANT 04/24/2017 IBIS ROONEY Ot E78.2 MIXED HYPERLIPIDEMIA 04/24/2017 IBIS ROONEY Ot I10 ESSENTIAL (PRIMARY) HYPERTENSION 04/24/2017 IBIS ROONEY Ot I25.10 ATHSCL HEART DISEASE OF [place] CORONARY 05/05/2017 IBIS ROONEY K Ot E78.2 MIXED HYPERLIPIDEMIA 05/05/2017 ISRA ROONEYTH K Ot I10 ESSENTIAL (PRIMARY) HYPERTENSION 05/05/2017 IBIS ROONEY K Ot I25.10 ATHSCL HEART DISEASE OF [place] CORONARY 05/11/2017 IBIS ROONEY K Ot E78.2 MIXED HYPERLIPIDEMIA 05/11/2017 ISRA ROONEYTH K Ot I10 ESSENTIAL (PRIMARY) HYPERTENSION 05/11/2017 IBIS ROONEY K Ot I25.10 ATHSCL HEART DISEASE OF [place] CORONARY 05/28/2017 IBIS ROONEY K Ot E78.2 MIXED HYPERLIPIDEMIA 05/28/2017 ISRA ROONEYTH K Ot I10 ESSENTIAL (PRIMARY) HYPERTENSION 05/28/2017 IBIS ROONEY K Ot I25.10 ATHSCL HEART DISEASE OF [place] CORONARY 06/06/2017 IBIS ROONEY K Ot E78.2 MIXED HYPERLIPIDEMIA 06/06/2017 ISRA ROONEYTH K Ot I10 ESSENTIAL (PRIMARY) HYPERTENSION 06/06/2017 IBIS ROONEY K Ot I25.10 ATHSCL HEART DISEASE OF [place] CORONARY 02/04/2018 SAMANTHA PERALTA MD, Ot M51.16 INTERVERTEBRAL DISC DISORDERS W RADICULO 02/04/2018 SAMANTHA PERALTA MD, Ot M53.3 SACROCOCCYGEAL DISORDERS, NOT ELSEWHERE 02/04/2018 SAMANTHA PERALTA MD, Ot Z79.02 [place] (CURRENT) USE OF ANTITHROMBOTI 02/04/2018 SAMANTHA PERALTA MD Ot Z79.899 OTHER INTERMEDIATE (CURRENT) DRUG THERAPY 02/06/2018 SAMANTHA PERALTA MD, Ot M51.16 INTERVERTEBRAL DISC DISORDERS W RADICULO 02/06/2018 SAMANTHA PERALTA MD, Ot M53.3 SACROCOCCYGEAL DISORDERS, NOT ELSEWHERE 02/06/2018 SAMANTHA PERALTA MD, Ot Z79.02 [place] (CURRENT) USE OF ANTITHROMBOTI 02/06/2018 SAMANTHA PERALTA MD, Ot Z79.899 OTHER INTERMEDIATE (CURRENT) DRUG THERAPY 03/25/2018 IBIS ROONEY Ot E78.5 HYPERLIPIDEMIA, UNSPECIFIED 03/25/2018 IBIS ROONEY Ot I10 ESSENTIAL (PRIMARY) HYPERTENSION 03/25/2018 IBIS ROONEY Ot I25.10 ATHSCL HEART DISEASE OF [place] CORONARY 04/15/2018 IBIS ROONEY Ot E78.5 HYPERLIPIDEMIA, UNSPECIFIED 04/15/2018 IBIS ROONEY Ot I10 ESSENTIAL (PRIMARY) HYPERTENSION 04/15/2018 IBIS ROONEY Ot I25.10 ATHSCL HEART DISEASE OF [place] CORONARY 04/24/2018 IBIS ROONEY Ot E78.5 HYPERLIPIDEMIA, UNSPECIFIED 04/24/2018 IBIS ROONEY Ot I10 ESSENTIAL (PRIMARY) HYPERTENSION 04/24/2018 IBIS ROONEY Ot I25.10 ATHSCL HEART DISEASE OF [place] CORONARY Procedures Code Description [place] [address] ROUTINE VENIPUNCTURE 04/01/2013 57740 CMP 04/01/2013 4670337 GFR CALC (RESULT ONLY) 04/01/2013 35841 CPK 04/01/2013 25128 BNP 04/01/2013 66555 CRP HS (CARDIO) 04/01/2013 51873 CARDIOVASCULAR STRESS TEST 04/02/2013 Cardiolog Marlin Montoya 09/15/2013 89587 ROUTINE VENIPUNCTURE 11/04/2013 85967 MRI SPINE (LUMBAR) W/O CONTRAST 11/04/2013 74612 CMP 11/04/2013 OPHTHALMO OLIVIA CRAWLEY 07/19/2014 Results Test Result Range Testosterone,Free and Total - 11/14/16 10:23 Testosterone, Serum 624 ng/dL [id number] Comment: Comment Free Testosterone(Direct) 6.7 pg/mL 6.6-18.1 Encounters ACCT No. Visit Date/Time Discharge Status Pt. Type Provider Facility Loc./Unit Complaint [id number] 07/21/2014 00:00:00 07/21/2014 23:59:59 CLS Outpatient HAKAN FREDERICK DO [id number] 07/19/2014 09:28:00 07/19/2014 23:59:59 CLS Outpatient HAKAN FREDERICK DO [id number] 11/04/2013 10:27:00 11/04/2013 23:59:59 CLS Outpatient HAKAN FREDERICK DO [id number] 09/01/2013 10:51:00 09/01/2013 23:59:59 CLS Outpatient HAKAN FREDERICK DO [id number] 04/01/2013 08:04:00 Document Registration [id number] 03/31/2013 09:23:00 Document Registration [id number] 09/14/2012 11:56:00 Document Registration [id number] 03/23/2018 09:37:00 03/23/2018 23:59:59 CLS Outpatient IBIS ROONEY Via [facility] LAB I25.10 I10 E78.2 [id number] 05/05/2017 08:16:00 05/05/2017 23:59:59 CLS Outpatient IBIS ROONEY Via [facility] CARD I25.10 CAD [id number] 04/18/2017 08:43:00 04/21/2017 06:59:00 DIS Outpatient MARLIN MONTOYA MD Via [facility] CR STABLE ANGINA [id number]/ STENTS 12/31 [id number] 04/02/2017 08:45:00 04/06/2017 00:01:00 DIS Outpatient MARLIN MONTOYA MD Via [facility] CR STABLE ANGINA [id number]/ STENTS 12/31 [id number] 04/03/2017 07:29:00 04/03/2017 23:59:59 CLS Outpatient IBIS ROONEY [facility] LAB I25.10,I10, E78.2 [id number] 03/24/2017 12:58:00 03/24/2017 13:43:00 DIS Outpatient SAMANTHA PERALTA MD Via [facility] CARD DISC DISORDER, SACROCOCCYGEAL DISORDER [id number] 01/03/2017 08:47:00 01/05/2017 00:01:00 DIS Outpatient MARLIN MONTOYA MD [facility] CR STABLE ANGINA [id number]/ STENTS 12/31 [id number] 12/30/2016 12:40:00 12/30/2016 14:20:00 DIS Outpatient SAMANTHA PERALTA MD [facility] CARD M51.16,M53.3 [id number] 09/02/2016 12:45:00 09/02/2016 13:42:00 DIS Outpatient SAMANTHA PERALTA MD [facility] CARD DISC DISORDER, SACROCOCCYGEAL DISORDER [id number] 05/24/2016 08:56:00 05/24/2016 10:09:00 DIS Outpatient SAMANTHA PERALTA MD [facility] CARD DISC DISORDER W/ RADICULOPATHY [id number] 03/01/2016 08:09:00 03/01/2016 23:59:59 CLS Outpatient MARLIN MONTOYA MD Via [facility] LAB CAD, CHEST PAIN, HTN, HYPERLIPIDEMIA [id number] 01/05/2016 07:15:00 01/05/2016 08:09:00 DIS Outpatient SAMANTHA PERALTA MD [facility] CARD DISC DISORDER W/ RADICULOPATHY [id number] 10/24/2015 13:34:00 10/24/2015 23:59:59 CLS Outpatient MARLIN MONTOYA MD Via [facility] RAD PVD,CAD,BILAT LEG CRAMPS [id number] 09/01/2015 07:28:00 09/01/2015 08:39:00 DIS Outpatient SAMANTHA PERALTA MD [facility] CARD DDD, SIJD [id number] 08/03/2015 08:00:00 08/03/2015 23:59:59 CLS Outpatient PATRICIA SAMUELS 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 [facility] QUICK [id number] 06/27/2015 15:53:00 06/27/2015 23:59:59 CLS Outpatient JONESSAUNDRA HUTSON 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 [facility] RAD LUMBAGO [id number] 03/10/2015 07:41:00 03/10/2015 23:59:59 CLS Outpatient MARLIN MONTOYA MD [facility] CARD CAD,HTN,HLP,DYSPNEA [id number] 03/01/2015 08:32:00 03/01/2015 23:59:59 CLS Outpatient MARLIN MONTOYA MD [facility] LAB CAD,DYSPNEA,HTN,HLP [id number] 02/28/2015 09:32:00 02/28/2015 23:59:59 CLS Outpatient MARLIN MONTOYA MD [facility] LAB CAD,HTN,HYPERLIPADEMIA [id number] 07/19/2014 08:55:00 07/19/2014 23:59:59 CLS Outpatient MARLIN MONTOYA MD [facility] LAB CAD,CP,GERD, HYPERLIPIDEMIA,RBBB [id number] 01/19/2014 08:09:00 01/19/2014 23:59:59 CLS Outpatient IBIS ROONEY [facility] LAB CAD,HLP [id number] 01/09/2014 12:00:00 01/09/2014 15:18:00 DIS Emergency ELIZABETH CARLIN MD [facility] ER FEVER PAIN IN FLANK [id number] 11/08/2013 11:41:00 11/08/2013 23:59:59 CLS Outpatient KNEYATTA BANERJEE [facility] RAD LOW BACK PAIN [id number] 10/19/2013 09:58:00 10/19/2013 23:59:59 CLS Outpatient [id number] 07/27/2013 08:47:00 07/27/2013 23:59:59 CLS Outpatient MARLIN MONTOYA MD [facility] LAB HYPERTENSION, HYPERLIPADEMIA [id number] 04/07/2013 14:51:00 04/09/2013 15:35:00 DIS Outpatient MARLIN MONTOYA MD Via [facility] CHEST PAIN,ELEVATED CRP, SOB [id number] 07/29/2018 06:45:00 ACT Outpatient MARLIN MONTOYA MD [facility] CATH CAD [id number] 02/28/2015 10:46:00 Document Registration [id number] 12/09/2012 16:02:00 Document Registration [id number] 09/21/2010 13:46:00 Document Registration [id number] 11/17/2016 07:05:00 Document Registration [id number] 08/03/2015 08:01:18 ACT Document Registration [id number] 12/10/2017 09:20:00 12/10/2017 23:59:59 CLS Outpatient RICHARD SANDOVAL APRN [facility]
[2018-07-29] MEDS ORDERED: HEParin 1000 UNIT/ML (10ML VIAL) FOR BOLUS ONE (06:56)
[2018-07-29] MEDS ORDERED: LIDOCAINE 1% INJ 20 ML 20 ML VIAL ONE (06:56)
[2018-07-29] MEDS ORDERED: NS IV 1000 ML 3,000 ML ONE (06:56)
--- NOTE | 2018-07-29 07:19 | Cardiac Procedure Note-CS/ASA ---
Pre-Procedure Note Pre-Op Procedure Note H&P Reviewed The H&P was reviewed, patient examined and no changes noted. Date H&P Reviewed: Jul 29, 2018 Time H&P Reviewed: 07:19 Conscious Sedation Pre-Proced Time Reviewed: 07:19 ASA Class: 3 Airway Mallampati Classification: ([email or web address] appropriate class) I. II. III, IV Lungs Heart ASA score ASA 1: a normal healthy patient ASA 2: a patient with a mild systemic disease (mid diabetes, controlled hypertension, obesity x ASA 3: a patient with a severe systemic disease that limits activity (angina , COPD, prior Myocardial infarction) ASA 4: a patient with an incapacitating disease that is a constant threat to life (CHF, renal failure) ASA 5: a moribund patient not expected to survive 24 hrs. (ruptured aneurysm) ASA 6: a declared brain patient whose organs are being harvested. For emergent operations, add the letter E after the classification Grade 3 Sedation Plan: Analgesia, Amnesia, Plan communicated to team members, Discussed options with patient/fam, Discussed risks with patient/fam Note The patient is an appropriate candidate to undergo the planned procedure, sedation, and anesthesia. The patient immediately re-assessed prior to indication. SHANNON SNYDER MD Jul 29, 2018 07:19
[2018-07-29 07:35] LABS: HEMOGLOBIN 15.4 G/DL (13.3-17.7); MEAN PLATELET VOLUME 10.6 FL (7.4-10.4); RED BLOOD COUNT 5.22 10^6/uL (4.35-5.85); RED CELL DISTRIBUTION WIDTH 13.8 % (10.0-14.5); WHITE BLOOD COUNT 7.1 10^3/uL (4.3-11.0)
--- NOTE | 2018-07-29 07:37 | Diagnostic Imaging Report ---
INDICATION: cad htn hlp sob COMPARISON: 04/07/2013 FINDINGS: Single frontal view of the chest demonstrates normal heart size and pulmonary vascularity. The lungs are well aerated and clear. No large pleural effusion or pneumothorax is seen. The visualized osseous structures show no acute abnormalities. IMPRESSION: 1. No acute cardiopulmonary process. Dictated by: Dictated on workstation # [id number]
[2018-07-29] MEDS ORDERED: BACL20TA PO (07:42)
[2018-07-29] MEDS ORDERED: PANT40SU PO (07:42)
[2018-07-29] MEDS ORDERED: ATOR40TA PO (07:42)
[2018-07-29] MEDS ORDERED: NS IV 1000 ML 1,000 ML IV SCH ×2 (07:45→09:02)
[2018-07-29 07:49] LABS: PROTHROMBIN TIME PATIENT 13.1 SEC (12.2-14.7)
[2018-07-29 07:52] LABS: BILIRUBIN,TOTAL 0.8 MG/DL (0.1-1.0); CALCIUM 9.5 MG/DL (8.5-10.1); CREATININE SERUM 1.22 MG/DL (0.60-1.30); POTASSIUM 3.7 MMOL/L (3.6-5.0); TOTAL PROTEIN 6.6 GM/DL (6.4-8.2)
[2018-07-29] MEDS ORDERED: MIDAZOLAM 5 MG/5 ML (VERSED) VIAL ONE (08:24)
[2018-07-29] MEDS ORDERED: fentaNYL INJECTION 100 MCG/2 ML AMP ONE (08:25)
--- NOTE | 2018-07-29 09:04 | Discharge Inst-Post CATH ---
Discharge Inst-CATH Post Cardiac Cath D/C Inst Follow Up/Plan Appointment with Dr. Montoya's office in 2-4 weeks CARDIAC CATH DISCHARGE INSTRUCTIONS *Hold Metformin for 48 hours post heart cath. ACTIVITY * Go Home directly and rest. * Limit activity of the leg (or wrist if it was used) for 7 days including aerobics, swimming, jogging, bicycling, etc. * Restrict stair-climbing for 7 days if possible, if not, climb up with your non -cath leg, then bring together on the same step. * Avoid lifting, pushing, pulling or excessive movement of the affected extremity for 7 days. * Customary sexual activity may be resumed after 2 days-use caution not to use a position that strains or causes pain to the affected extremity. * No driving for 24 hours. * NO SMOKING. * Avoid straining for bowel movements for 7 days. * Gentle walking on level ground is allowed. * Returning to work will depend on the type of procedure and the results. Your doctor will discuss this with you. CALL YOUR DOCTOR FOR ANY OF THE FOLLOWING: *If bleeding from the puncture site occurs- Apply gentle pressure to site with clean cloth and call your doctor or EMS. * If a knot or lump forms under the skin, increases in size, or causes pain. * If bruising appears to be worsening or moving further down your leg instead of disappearing. * Temperature above 101 F. CARE OF YOUR GROIN INCISION; * Bruising or purple discoloration of the skin near the puncture site is common. * You may shower only, no bathtub bathing for 5 days. Be careful to avoid slipping as your leg may feel stiff. * If a closure device was used on your femoral artery, please see the attached guide regarding care of the device and your leg. * REMOVE the dressing from your groin the next day after your procedure in the shower. CARE OF YOUR WRIST INCISION; * Bruising or purple discoloration of the skin near the puncture site is common. * You may shower. * DO NOT submerge wrist. * Remove dressing in 24 hours. SHANNON MONTOYA MD Jul 29, 2018 09:03
--- NOTE | 2018-07-29 09:10 | Cardiac Cath Report ---
Cardiac Cath Report Physician (s)/Cash Sales Audit Clerk (s) Physician SHANNON SNYDER MD Pre-Procedure Diagnosis Pre-Procedure Diagnosis: Coronary artery disease Post-Procedure Note Procedure Start Date: Jul 29, 2018 Name of Procedure: Left heart catheterization Left ventriculogram Aortic arch angiogram Findings/Procedure Note PROCEDURE NOTE: After explaining the procedure to the patient, all pros and cons were explained , all questions were answered. The patient signed the consent and then he was placed on the cardiac catheterization laboratory. Groin was prepped SL fashion local anesthesia was used. Sheath placed in the right femoral artery. Blake right and left catheter were used to access the coronary system. Pigtail was used to access the left ventricular cavity. Left ventriculogram was done Aortic arch angiogram was done to evaluate the aorta in preparation for possible bypass surgery At the end of the procedure the sheath was removed. Closure device was used FINDINGS: Hemodynamics LV 108/17, and S5 pressure of 17 Aorta 108/43 mean of 63 ANATOMY: Left Main has 60 percent stenosis distally Left Anterior Descending smaller artery with 6070 percent at the midportion involving the first diagonal artery distally there is moderate disease Left Circumflex is moderate in size, the second obtuse marginal branch is totally occluded getting filled by collaterals Ramus intermedius, small to moderate in size with severe stenosis proximally Right Coronory Artery small to moderate in size with patent stent in the midright LV Gram was done showing normal left ventricular size and systolic function estimated ejection fraction 60 percent Aorta evaluation done with aortic arch angiogram which showed normal aortic arch , no dissection or aneurysm, normal great neck vessels CONCLUSION: 1. Multivessel coronary artery disease involving the mid and distal left main coronary artery, mid and distal LAD, ostial first diagonal, proximal ramus intermedius and the second obtuse marginal branch 2. Patent stent in the mid right coronary artery 3. Normal left ventricular size and systolic function estimated ejection fraction 60 percent 4. Normal aortic arch and great neck vessels DISCUSSION AND RECOMMENDATION: I will continue maximizing medical therapy and forward a copy of his film for evaluation for possible CABG Anesthesia Type: Conscious Sedation Estimated blood loss (mL): 20 ml Contrast Amount: 60 ml Total Radiation Dose: 505 mGy Post-Procedure Diagnosis Post-operative diagnosis: Coronary artery disease Hypertension Hyperlipidemia SHANNON SNYDER MD Jul 29, 2018 09:10
[2018-07-29] MEDS ORDERED: PATIENT MAY USE OWN MEDS, ALL PO SCH (09:15)
== END 2018-07-29 14:45 | disposition home or self-care (01) ==
LOC: CATH 06:45 → SDC 09:35 → CATH 14:45
PROVIDERS: ATTEND Internal Medicine Cardiovascular Disease
DX: I25.10 Atherosclerotic heart disease of native coronary artery without angina pectoris (principal); I10 Essential (primary) hypertension; E78.5 Hyperlipidemia, unspecified; I45.10 Unspecified right bundle-branch block; Z79.82 Long term (current) use of aspirin; Z79.899 Other long term (current) drug therapy
CPT/HCPCS: 36221; 36415; 71045; 80053; 80061; 85027; 85610; 85730; 87081; 93005; 93458

== ENCOUNTER 2019-01-29 08:28 | Outpatient (RCR) | payer MEDICARE, MEDICAID ==
[~2019-01-29 08:28] MED LIST changes: +ACET-2267 PO; +ASPI-983 PO; +ATOR40TA PO; +ATOR40TA70 PO; +BACL20TA PO; +CLOP75TA28 PO; +ISM60TCR PO; +ISOS30TA3 PO; +LISI-556 PO; +LORA1TAB PO; +METO-333 PO; +METO-387 PO; +PANT40SU PO; +PANT40TA3 PO
== END 2019-02-02 | disposition home or self-care (01) ==
LOC: CR 08:28
PROVIDERS: ATTEND Internal Medicine Cardiovascular Disease
DX: Z48.812 Encounter for surgical aftercare following surgery on the circulatory system (principal); Z95.1 Presence of aortocoronary bypass graft
CPT/HCPCS: 93798

== ENCOUNTER 2019-02-08 09:20 | Outpatient (RCR) | payer MEDICARE, MEDICAID | END 2019-05-04 | disposition home or self-care (01) | LOC: CR 09:20 | PROVIDERS: ATTEND Internal Medicine Cardiovascular Disease | DX: Z48.812 Encounter for surgical aftercare following surgery on the circulatory system (principal); Z95.1 Presence of aortocoronary bypass graft | CPT/HCPCS: 93798 ==

== ENCOUNTER → 2019-04-09 | Outpatient (CLI) | payer MEDICARE, MEDICAID ==
[2019-04-09 07:47] LABS: ALBUMIN 3.9 GM/DL (3.2-4.5); BILIRUBIN,TOTAL 1.1 MG/DL (0.1-1.0); CALCIUM 9.3 MG/DL (8.5-10.1); CREATININE SERUM 1.23 MG/DL (0.60-1.30); POTASSIUM 3.6 MMOL/L (3.6-5.0); TOTAL PROTEIN 6.2 GM/DL (6.4-8.2)
== END ==
LOC: LAB 07:15
PROVIDERS: ATTEND Physician Assistant
DX: I25.10 Atherosclerotic heart disease of native coronary artery without angina pectoris (principal); E78.2 Mixed hyperlipidemia; I10 Essential (primary) hypertension
CPT/HCPCS: 36415; 80053; 80061

== ENCOUNTER → 2019-10-25 | Outpatient (CLI) | payer MEDICARE, MEDICAID ==
[~2019-10-25] MED LIST changes: +LISI1TAB29 PO; -METO-387 PO; +MTP25TSR PO
[2019-10-25 09:23] LABS: ALBUMIN 4.1 GM/DL (3.2-4.5); BILIRUBIN,TOTAL 0.6 MG/DL (0.1-1.0); CALCIUM 9.3 MG/DL (8.5-10.1); CREATININE SERUM 1.27 MG/DL (0.60-1.30); POTASSIUM 3.8 MMOL/L (3.6-5.0); TOTAL PROTEIN 6.8 GM/DL (6.4-8.2)
== END ==
LOC: LAB 08:45
PROVIDERS: ATTEND Physician Assistant
DX: I25.10 Atherosclerotic heart disease of native coronary artery without angina pectoris (principal); I10 Essential (primary) hypertension; K21.9 Gastro-esophageal reflux disease without esophagitis; E78.5 Hyperlipidemia, unspecified
CPT/HCPCS: 36415; 80053; 80061

== ENCOUNTER → 2020-03-30 | Outpatient (CLI) | payer MEDICARE, MEDICAID ==
[2020-03-30 09:14] LABS: ALANINE AMINOTRANSFERASE 21 U/L (0-55); ALKALINE PHOSPHATASE 68 U/L (40-136); BILIRUBIN,TOTAL 0.8 MG/DL (0.1-1.0); BUN/CREATININE RATIO 15; CARBON DIOXIDE 25 MMOL/L (21-32); CHLORIDE 107 MMOL/L (98-107); CHOLESTEROL 87 MG/DL (< 200); CREATININE SERUM 1.08 MG/DL (0.60-1.30); GFR ESTIMATED > 60; GLUCOSE 97 MG/DL (70-105); HDL CHOLESTEROL 24 MG/DL (40-60); POTASSIUM 3.7 MMOL/L (3.6-5.0); SODIUM 140 MMOL/L (135-145); TOTAL PROTEIN 6.8 GM/DL (6.4-8.2); TRIGLYCERIDES 223 MG/DL (<150); VLDL CHOLESTEROL 45 MG/DL (5-40)
== END ==
LOC: LAB 08:37
PROVIDERS: ATTEND Physician Assistant
DX: I25.10 Atherosclerotic heart disease of native coronary artery without angina pectoris (principal); E78.2 Mixed hyperlipidemia; I10 Essential (primary) hypertension
CPT/HCPCS: 36415; 80053; 80061

== ENCOUNTER → 2020-10-02 | Outpatient (CLI) | payer MEDICARE, MEDICAID ==
[~2020-10-02] MED LIST changes: +ASPI-1238 PO; -ASPI-983 PO; -PANT40TA3 PO; +PANT40TA52 PO
[2020-10-02 09:23] LABS: ALBUMIN 4.1 GM/DL (3.2-4.5); CHLORIDE 102 MMOL/L (98-107); SODIUM 139 MMOL/L (135-145)
[2020-10-02 09:24] LABS: CALCIUM 9.6 MG/DL (8.5-10.1)
[2020-10-02 09:25] LABS: GLUCOSE 95 MG/DL (70-105); TOTAL PROTEIN 7.2 GM/DL (6.4-8.2); TRIGLYCERIDES 184 MG/DL (<150); VLDL CHOLESTEROL 37 MG/DL (5-40)
[2020-10-02 09:26] LABS: CARBON DIOXIDE 27 MMOL/L (21-32)
[2020-10-02 09:27] LABS: BILIRUBIN,TOTAL 1.1 MG/DL (0.1-1.0)
[2020-10-02 09:29] LABS: ALKALINE PHOSPHATASE 74 U/L (40-136); CREATININE SERUM 1.12 MG/DL (0.60-1.30); GFR ESTIMATED > 60
[2020-10-02 09:30] LABS: BUN/CREATININE RATIO 17; CHOLESTEROL 91 MG/DL (< 200)
[2020-10-02 09:31] LABS: HDL CHOLESTEROL 24 MG/DL (40-60)
[2020-10-02 09:32] LABS: ALANINE AMINOTRANSFERASE 28 U/L (0-55)
== END ==
LOC: LAB 08:50
PROVIDERS: ATTEND Physician Assistant
DX: E78.2 Mixed hyperlipidemia (principal); I10 Essential (primary) hypertension
CPT/HCPCS: 36415; 80053; 80061

== ENCOUNTER → 2020-10-30 | Outpatient (CLI) | payer MEDICARE, MEDICAID | LOC: CARD 09:11 | PROVIDERS: ATTEND Physician Assistant | DX: I34.0 Nonrheumatic mitral (valve) insufficiency (principal); I51.7 Cardiomegaly; I25.10 Atherosclerotic heart disease of native coronary artery without angina pectoris | CPT/HCPCS: 93306 ==

== ENCOUNTER → 2022-09-30 | Outpatient (CLI) | payer MEDICARE, MEDICAID ==
[~2022-09-30] MED LIST changes: -ISM60TCR PO; -ISOS30TA3 PO; +ISOS30TA82 PO; +ISOS60TA63 PO; -LISI-556 PO; -LISI1TAB29 PO; +LISI1TAB44 PO; +LISI5TAB20 PO
[2022-09-30 08:54] LABS: ALBUMIN 3.9 GM/DL (3.2-4.5); BILIRUBIN,TOTAL 0.8 MG/DL (0.1-1.0); CALCIUM 9.4 MG/DL (8.5-10.1); CREATININE SERUM 1.37 MG/DL (0.60-1.30); POTASSIUM 3.8 MMOL/L (3.6-5.0); TOTAL PROTEIN 6.5 GM/DL (6.4-8.2)
== END ==
LOC: LAB 08:11
PROVIDERS: ATTEND Physician Assistant
DX: E78.2 Mixed hyperlipidemia (principal)
CPT/HCPCS: 36415; 80053; 80061

== ENCOUNTER → 2022-11-14 | Outpatient (CLI) | payer MEDICARE, MEDICAID | LOC: CARD 08:19 | PROVIDERS: ATTEND Internal Medicine Cardiovascular Disease | DX: I11.9 Hypertensive heart disease without heart failure (principal); I34.0 Nonrheumatic mitral (valve) insufficiency | CPT/HCPCS: 93306 ==

== ENCOUNTER 2022-11-20 10:00 | Outpatient (RCR) | payer MEDICARE, MEDICAID | END 2023-01-16 | disposition home or self-care (01) | LOC: CR3 10:00 | PROVIDERS: ATTEND Internal Medicine Cardiovascular Disease | DX: Z29.8 Encounter for other specified prophylactic measures (principal) ==

== ENCOUNTER → 2022-12-18 | Outpatient (CLI) | payer MEDICARE, MEDICAID ==
[~2022-12-18] MED LIST changes: +CATHETER FLUSH 10 ML SYR IVP PRN
[2022-12-18 09:07] VITALS: BP 167/92
[2022-12-18 09:16] VITALS: BP 190/90
--- NOTE | 2022-12-18 13:36 | Cardiology Stress Test Report ---
Stress Test Report Date of Procedure/Referring: Date of Procedure: Dec 18, 2022 PCP Kyra Montesinos DO Admitting Physician Admitting Physician: Attending Physician: Shannon Montoya MD Indications: CAD Baseline Heart Rate: 62 Baseline Blood Pressure: Blood Pressure Systolic: 190 Blood Pressure Diastolic: 90 Vital Signs Date Time Temp Pulse Resp B/P (MAP) Pulse Ox O2 Delivery O2 Flow Rate FiO2 12/18/22 09:07 81 19 167/92 (117) 99 Baseline Vital Signs Vital Signs Date Time Temp Pulse Resp B/P (MAP) Pulse Ox O2 Delivery O2 Flow Rate FiO2 12/18/22 09:07 81 19 167/92 (117) 99 Baseline EKG: Baseline EKG: NSR Summary: After explaining the procedure and details to the patient, he signed the consent and was brought to the stress nuclear laboratory. Patient exercised on standard [place] protocol, EKG, heart rate and blood pressure were monitored continuously, resting and stress doses of radio tracer were injected, imaging was acquired and reviewed in the short axis, horizontal long axis and vertical long axis views Patient was able to exercise for a total of 7 minutes on [place] protocol, METs 8.5 Maximum heart rate 132 Maximum blood pressure 190/90 Stress EKG, Minimal nondiagnostic changes Recovery EKG, Return to baseline TID: 1.13 SSS: 13 SDS: 4 EF: 65 Conclusion: 1. Good exercise tolerance for a total of 7 minutes on standard [place] protocol, 8.5 METS achieving 89% of maximum expected heart rate 2. Appropriate heart rate response to exercise with hypertensive response to exercise with peak blood pressure 190/90 return to baseline during recovery 3. Baseline right bundle branch block with widening of the QRS with exercise with diffuse T wave inversion and nonspecific changes with exercise persisted in recovery with widening of the QRS 4. Reversible ischemia involving the inferior wall and inferolateral wall with diaphragmatic attenuation 5. Normal left ventricular size, ejection fraction 65% Copy Copies To 1: [facility] [place] SHANNON MONTOYA MD Dec 18, 2022 13:36
== END ==
LOC: CARD 07:07
PROVIDERS: ATTEND Internal Medicine Cardiovascular Disease
DX: I10 Essential (primary) hypertension (principal)
CPT/HCPCS: 78452; 93017; A9502

== ENCOUNTER → 2023-01-15 | Outpatient (CLI) | payer MEDICARE, MEDICAID ==
[~2023-01-15] MED LIST changes: -CATHETER FLUSH 10 ML SYR IVP PRN
[2023-01-15 08:40] LABS: ALBUMIN 4.2 GM/DL (3.2-4.5); BILIRUBIN,TOTAL 0.9 MG/DL (0.1-1.0); CALCIUM 10.3 MG/DL (8.5-10.1); CREATININE SERUM 1.94 MG/DL (0.60-1.30); POTASSIUM 3.9 MMOL/L (3.6-5.0); TOTAL PROTEIN 6.9 GM/DL (6.4-8.2)
== END ==
LOC: LAB 08:05
PROVIDERS: ATTEND Internal Medicine Cardiovascular Disease
DX: I65.29 Occlusion and stenosis of unspecified carotid artery (principal); I25.10 Atherosclerotic heart disease of native coronary artery without angina pectoris; I10 Essential (primary) hypertension; K21.9 Gastro-esophageal reflux disease without esophagitis; E78.2 Mixed hyperlipidemia
CPT/HCPCS: 36415; 80053; 80061

== ENCOUNTER → 2023-07-21 | Outpatient (CLI) | payer MEDICARE, MEDICAID ==
[2023-07-21 09:01] LABS: ALBUMIN 4.2 GM/DL (3.2-4.5); BILIRUBIN,TOTAL 0.9 MG/DL (0.1-1.0); CALCIUM 9.5 MG/DL (8.5-10.1); CREATININE SERUM 1.89 MG/DL (0.60-1.30); TOTAL PROTEIN 6.9 GM/DL (6.4-8.2)
== END ==
LOC: LAB 08:29
PROVIDERS: ATTEND Internal Medicine Cardiovascular Disease
DX: I65.29 Occlusion and stenosis of unspecified carotid artery (principal); I25.10 Atherosclerotic heart disease of native coronary artery without angina pectoris; I10 Essential (primary) hypertension; K21.9 Gastro-esophageal reflux disease without esophagitis; E78.2 Mixed hyperlipidemia
CPT/HCPCS: 36415; 80053; 80061